=== PATIENT | female | born 1980 | race Caucasian/White ===

== ENCOUNTER 2018-09-23 11:36 | Emergency (ER) | payer SELFPAY ==
[2018-09-23 11:39] VITALS: BP 141/79; PULSE 77; RESP 20; TEMP 36.6; O2SAT 98
--- NOTE | 2018-09-23 11:39 | W.ED.GENAD ---
Discharge Plan Disposition Patient Disposition: HOME Condition: Stable Discharge Details Chief Complaint: Chest/Rib Clinical Impression: Chest pain, musculoskeletal Primary Care Provider: Milena Taylor V ED Provider: Dipak Loja Home Meds and New Rx's Prescriptions: No Action acetaminophen [Mapap Extra Strength] 500 MG tablet 2 tab PO TID PRNRF: 0 ibuprofen 200 MG tablet 200 mg PO PRNRF: 0 Discharge Instructions Additional Instructions: Your pain seems most likely from a muscle strain follow up with your primary care provider in 1-2 weeks if pain continues you can take 1000mg tylenol and 600mg ibuprofen every 6 hours for pain as needed if you have severe worsening pain, difficulty breathing or feel more ill return to the emergency department Stand Alone Forms: Work Release Medical Decision Making 38 yo female who denies chronic medical problems, is a smoker, denies drug use, comes in with a few months of constant left sided chest pain in the mid axillary line wrapping around the inferior left breast and back. Denies pain with exertion, n/v, diaphoresis. She denies being on control or recent travel/surgery, wells low and perc negative so doubt PE. Has clear lungs sounds and no fever so unlikely ptx vs pna but will xray to eval for this. no tearing back pain and normal vascular exam so doubt dissection. She is noted to have tendernress with palpation to the left chest in the mid axillary line over the 4-5ribs without rashes. She does smoke so I suspect chest wall strain from likely smoker's cough. Has no pain with exertion and pain is reproducible on exam and is positional so do not feel acs workup indicated pt remains stable, xray negative on my read. Only has pain now with palpation. Will d/c and advised f/u with pcp and return precautions given Differential Diagnosis muscle strain, ptx pna HPI General Mode of arrival: ambulatory. Date/Time Provider Initiated Documentation: 09/23/18 11:39. Limitations to Documentation: no limitations. Information obtained by: patient. History of Present Illness 38 year old F presents to the emergency department with the chief complaint of left sided chest pain, described as moderate, Quality is described as stabbing and aching, and is localized to the chest and left. Patient reports no radiation. Patient started experiencing this month(s) (2) and it has been constant. No relieving factors improve symptom(s), No exacerbating factors reported . Patient notes cough. Patient did receive the following treatments prior to arrival, NSAID Related Data Home Medications Medication Instructions Recorded Confirmed acetaminophen [Tylenol] 2 tab PO TID PRN 09/13/14 09/23/18 ibuprofen 200 mg PO PRN 11/07/14 11/07/14 Allergies Allergy/AdvReac Type Severity Reaction Status Date / Time morphine AdvReac Intermediate Nausea Unverified 09/23/18 11:42 Review of Systems Review of Systems All systems reviewed & are unremarkable except as noted in HPI and below Constitutional Denies chills, Denies fever(s) and Denies weakness ENT Denies change in voice Cardiovascular Denies dyspnea Respiratory Denies dyspnea Gastrointestinal Denies abdominal pain, Denies nausea and Denies vomiting Genitourinary Denies dysuria Musculoskeletal Denies joint swelling Integumentary/Breasts Denies rash Neurologic Denies weakness [facility] Surgical History Arthroplasty of knee section Diagnostic Laproscopy (11/26/16) Dilation and curettage back surgery Social History Smoking/Tobacco Use Status: Current every day Alcohol Intake: current Alcohol Intake frequency: a few times a month Drug use: Never Do you feel safe in your relationship?: Yes Exam Const General: no acute distress Orientation: alert HENMT Head: normal to inspection Ears: external ears normal General nose exam: external nose normal Mouth: moist mucous membranes Eyes General: appearance normal, both eyes and all related structures Neck Neck: normal visual inspection Chest Chest: normal inspection of the chest and No rash Resp Effort & Inspection: normal respiratory effort and able to speak in complete sentences Cardio Rate: regular rate Skin General skin exam: no rashes or lesions noted Neuro General: alert and oriented x3 Extrem General: normal to inspection Psych Mental Status: mental status grossly normal
--- NOTE | 2018-09-23 11:48 | DI.RAD_ITS ---
SYMPTOMS/DIAGNOSIS: LEFT SIDED CHEST PAIN PA AND LATERAL CHEST: The heart is normal in size. The lungs are clear. The mediastinal structures and pleura appear intact. CONCLUSION: Normal chest.
--- NOTE | 2018-09-23 11:52 | ED.GENADUL_ITS ---
Discharge Plan Disposition Patient Disposition: HOME Condition: Stable Discharge Details Chief Complaint: Chest/Rib Clinical Impression: Chest pain, musculoskeletal Primary Care Provider: Milena Taylor V ED Provider: Dipak Loja Home Meds and New Rx's Prescriptions: No Action acetaminophen [Mapap Extra Strength] 500 MG tablet 2 tab PO TID PRNRF: 0 ibuprofen 200 MG tablet 200 mg PO PRNRF: 0 Discharge Instructions Additional Instructions: Your pain seems most likely from a muscle strain follow up with your primary care provider in 1-2 weeks if pain continues you can take 1000mg tylenol and 600mg ibuprofen every 6 hours for pain as needed if you have severe worsening pain, difficulty breathing or feel more ill return to the emergency department Stand Alone Forms: Work Release Medical Decision Making 38 yo female who denies chronic medical problems, is a smoker, denies drug use, comes in with a few months of constant left sided chest pain in the mid axillary line wrapping around the inferior left breast and back. Denies pain with exertion, n/v, diaphoresis. She denies being on control or recent travel/surgery, wells low and perc negative so doubt PE. Has clear lungs sounds and no fever so unlikely ptx vs pna but will xray to eval for this. no tearing back pain and normal vascular exam so doubt dissection. She is noted to have tendernress with palpation to the left chest in the mid axillary line over the 4-5ribs without rashes. She does smoke so I suspect chest wall strain from likely smoker's cough. Has no pain with exertion and pain is reproducible on exam and is positional so do not feel acs workup indicated pt remains stable, xray negative on my read. Only has pain now with palpation. Will d/c and advised f/u with pcp and return precautions given Differential Diagnosis muscle strain, ptx pna HPI General Mode of arrival: ambulatory . Date/Time Provider Initiated Documentation: 09/23/18 11:39 . Limitations to Documentation: no limitations . Information obtained by: patient . History of Present Illness 38 year old F presents to the emergency department with the chief complaint of left sided chest pain, described as moderate, Quality is described as stabbing and aching, and is localized to the chest and left. Patient reports no radiation. Patient started experiencing this month(s) (2) and it has been constant. No relieving factors improve symptom(s), No exacerbating factors reported . Patient notes cough. Patient did receive the following treatments prior to arrival, NSAID Related Data Home Medications Medication Instructions Recorded Confirmed acetaminophen [Tylenol] 2 tab PO TID PRN 09/13/14 09/23/18 ibuprofen 200 mg PO PRN 11/07/14 11/07/14 Allergies Allergy/AdvReac Type Severity Reaction Status Date / Time morphine AdvReac Intermediate Nausea Unverified 09/23/18 11:42 Review of Systems Review of Systems All systems reviewed & are unremarkable except as noted in HPI and below Constitutional Denies chills, Denies fever(s) and Denies weakness ENT Denies change in voice Cardiovascular Denies dyspnea Respiratory Denies dyspnea Gastrointestinal Denies abdominal pain, Denies nausea and Denies vomiting Genitourinary Denies dysuria Musculoskeletal Denies joint swelling Integumentary/Breasts Denies rash Neurologic Denies weakness [facility] Surgical History Arthroplasty of knee section Diagnostic Laproscopy (11/26/16) Dilation and curettage back surgery Social History Smoking/Tobacco Use Status: Current every day Alcohol Intake: current Alcohol Intake frequency: a few times a month Drug use: Never Do you feel safe in your relationship?: Yes Exam Const General: no acute distress Orientation: alert HENMT Head: normal to inspection Ears: external ears normal General nose exam: external nose normal Mouth: moist mucous membranes Eyes General: appearance normal, both eyes and all related structures Neck Neck: normal visual inspection Chest Chest: normal inspection of the chest and No rash Resp Effort & Inspection: normal respiratory effort and able to speak in complete sentences Cardio Rate: regular rate Skin General skin exam: no rashes or lesions noted Neuro General: alert and oriented x3 Extrem General: normal to inspection Psych Mental Status: mental status grossly normal
[2018-09-23 12:31] VITALS: BP 141/79; PULSE 77; RESP 20; TEMP 36.6; O2SAT 98
== END 2018-09-23 12:31 | disposition home or self-care (01) ==
PROVIDERS: Emergency Provider Emergency Medicine; PCP Family Medicine
DX: R07.89 Other chest pain (principal); F17.210 Nicotine dependence, cigarettes, uncomplicated
CPT/HCPCS: 99283; 71046

== ENCOUNTER 2019-12-22 09:44 | Outpatient (REF) | payer MEDICAID, SELFPAY ==
[2019-12-22 21:33] LABS: Anion Gap 9.7 mmol/L (3-11); BUN 14 mg/dL (7-18); CO2 27.3 mmol/L (21.0-32.0); CREATININE 0.74 mg/dL (0.55-1.02); Calcium 9.5 mg/dL (8.5-10.1); Calculated LDL 128 mg/dL (<100); Chloride 104 mmol/L (98-107); Cholesterol 194 mg/dL (<200); Glucose 96 mg/dL (74-106); HDL Cholesterol 47 mg/dL (40-60); Potassium 4.5 mmol/L (3.5-5.1); Sodium 141 mmol/L (136-145); TSH 0.02 uIU/mL (0.36-3.74); Triglyceride 97 mg/dL (<150)
== END 2019-12-22 10:04 ==
LOC: NCHCN 09:44
PROVIDERS: PCP Family Medicine; Visit Provider Nurse Practitioner Family
DX: E03.9 Hypothyroidism, unspecified (principal); R03.0 Elevated blood-pressure reading, without diagnosis of hypertension; R63.5 Abnormal weight gain
CPT/HCPCS: 80048; 80061; 84443

== ENCOUNTER 2020-03-03 12:31 | Emergency (ER) | payer MEDICAID, SELFPAY ==
[2020-03-03 12:35] VITALS: BP 131/83; PULSE 77; RESP 18; TEMP 36.5; O2SAT 97
--- NOTE | 2020-03-03 12:43 | ED.GENADUL_ITS ---
Discharge Plan Disposition Patient Disposition: HOME Condition: Stable Discharge Details Clinical Impression: Swelling Primary Care Provider: Milena Taylor V ED Provider: Bryanna Donaldson Home Meds and New Rx's Prescriptions: New prednisone 20 mg tablet 60 mg PO DAILY 5 Days Qty: 15 RF: 0 No Action acetaminophen [Mapap Extra Strength] 500 MG tablet 2 tab PO TID PRNRF: 0 ibuprofen 200 MG tablet 200 mg PO PRNRF: 0 levothyroxine 150 mcg tablet 150 mcg PO DAILY RF: 0 Discharge Instructions Instructions: Leg Edema (ED) Additional Instructions: Follow up with primary care provider in 3-5 days. Return to ED sooner if any worsening or concerns. Increase oral fluids. Please take Tylenol or Ibuprofen with food every 4-6 hours as needed for pain and swelling. Take medications as directed for swelling and inflammation. The ultrasound today was negative for DVT. Your lab results are all largely within normal limits. At this time I am not sure what the swelling is caused from but I encourage you to follow-up with your PCP as previously scheduled. Referrals: Milena Taylor MD [Primary Care Provider] - Medical Decision Making 39-year-old female presents to the ER with complaint of swelling noted to her bilateral lower extremities which has been occurring since 1 week. swelling around her right eye began today. She denies any shortness of breath, cough, fe sybil or any other associated symptoms. Denies any chest pain problems urinating nausea vomiting diarrhea. Labs are largely within normal limits, d-dimer slightly elevated at 800. Will do an ultrasound of her bilateral lower extremities to rule out DVT. Prednisone 60 mg p.o. ordered given here in department. Preliminary result received from photo optics technician negative for DVT. Plan is to have patient follow-up with primary care provider she does have an appointment scheduled on the will encourage her to keep that appointment. Differential diagnosis includes DVT, edema, water retention, autoimmune disorder, inflammatory disorder such as lupus or similar. Allergic reaction. HPI General Mode of arrival: ambulatory . Date/Time Provider Initiated Documentation: 03/03/20 12:32 . Limitations to Documentation: no limitations . Information obtained by: patient . HPI Narrative: 39-year-old female presents to the ER with complaint of swelling noted to her bilateral lower extremities which has been occurring since 1 week. swelling around her right eye began today. She denies any shortness of breath, cough, fever or any other associated symptoms. Denies any chest pain problems urinating nausea vomiting diarrhea. Related Data Home Medications Medication Instructions Recorded Confirmed acetaminophen [Tylenol] 2 tab PO TID PRN 09/13/14 09/23/18 ibuprofen 200 mg PO PRN 11/07/14 11/07/14 levothyroxine 150 mcg PO DAILY 03/03/20 03/03/20 prednisone 60 mg PO DAILY 5 Days #15 tab 03/03/20 Previous Rx's Medication Instructions Recorded prednisone 60 mg PO DAILY 5 Days #15 tab 03/03/20 Allergies Allergy/AdvReac Type Severity Reaction Status Date / Time morphine AdvReac Intermediate Nausea Unverified 03/03/20 12:38 General Stated Complaint: Orthopedic MANSOOR: 4 Review of Systems Narrative: Constitutional: Negative for weight loss, alert and oriented, well groomed, normal body habitus, appears comfortable. HEENT: Denies trauma, headaches, blurry vision, nasal discharge, sore throat, trouble swallowing. Chest: Denies chest pain, palpitations, irregular rhythm, hypertension. Respiratory: Denies Shortness of breath, cough, hemoptysis. GI: Denies abdominal pain, nausea, vomiting, diarrhea, constipation. : Denies dysuria, hematuria, flank pain, rectal bleeding. Neuro: Denies dizziness, blurry vision, weakness, syncope, headache or facial numbness. Hematologic: Denies easy bruising, intolerance to heat or cold, hair loss. [facility] Surgical History Arthroplasty of knee 2004 back surgery 2014 [facility]. Spondylothesis. section x2. Diagnostic Laproscopy (11/26/16) At time of D+C for incomplete SAB to r/o ectopic . Dilation and curettage x3 for missed SAB x2 and incomplete SAB x1. Social History Smoking/Tobacco Use Status: Current every day Alcohol Intake: current Alcohol Intake frequency: a few times a month Drug use: Never Do you feel safe at home: Yes Do you feel safe in your relationship?: Yes Exam Narrative Exam Narrative: Constitutional: Alert and oriented x3. Appears stated age. Normal body habitus. Head: Normocephalic, no trauma. Eyes: Pupils PERRLA, Red reflex noted, EOM's intact. Eyelids symmetrical without lesions, discharge. Does have some swelling noted around the right eye lid, no injected conjunctiva or drainage noted. No erythema. ENT: Bilateral TM's WNL, External ear normal to inspection, no mastoid TTP, swelling, or erythema, Nasal turbinates WNL, no nasal discharge. Normal dentition, Posterior pharynx WNL, no exudate. Chest: RRR, Normal S1, S2, distal pulses intact. Resp: Lungs clear to auscultation bilaterally, no wheezes, rales, or rhonchi. Musculoskeletal: Normal gait, 5/5 strength to all four extremities. There is generalized swelling noted to her bilateral lower extremities. Nonpitting edema noted Skin: No suspicious rashes or lesions. Capillary refill less than 2 sec. Neurologic: Cranial nerves II-XII intact. Alert and oriented x 3. DTR's intact. Hematologic/Lymphatic: No ecchymosis, no lymphadenopathy. Course Vital Signs Vital signs: Vital Signs Temperature 36.5 C 03/03/20 12:35 Pulse 77 03/03/20 12:35 Respiratory Rate 18 03/03/20 12:35 Blood Pressure 131/83 03/03/20 12:35 Pulse Oximetry 97 03/03/20 12:35 Temperature 36.5 C 03/03/20 12:35 Temperature Source Skin 03/03/20 12:35 Pulse 77 03/03/20 12:35 Respiratory Rate 18 03/03/20 12:35 Respiratory Effort Non-Labored 03/03/20 12:38 Blood Pressure 131/83 03/03/20 12:35 Blood Pressure Position Sitting 03/03/20 12:35 Pulse Oximetry 97 03/03/20 12:35 Oxygen Delivery Method Room Air 03/03/20 12:35 Oxygen Flow Rate 0 03/03/20 12:35 Pain Level 5 03/03/20 12:35
--- NOTE | 2020-03-03 12:52 | DI.US_ITS ---
EXAM: US EXTREMITY VENOUS BI CLINICAL HISTORY: Swelling legs, r/o DVT. TECHNIQUE: Lower extremity venous ultrasound performed using grayscale, color-flow, and spectral Dop pler analysis. COMPARISON: No exams were available for comparison FINDINGS: The common femoral, femoral and popliteal veins demonstrate normal compressibility, augmentation, and color Doppler. The posterior tibial veins are patent. The saphenous vein appears free of thrombus. No Vera's cyst or hematoma is seen. IMPRESSION: No evidence of DVT. DATA REPOSITORY:
[2020-03-03 13:05] LABS: Abs Immature Grans 0.02 10^3/uL (0.0-0.06); Absolute Basophil Count 0.05 10^3/uL (0.0-0.2); Absolute Lymphocyte Count 1.72 10^3/uL (1.2-3.4); Absolute Monocyte Count 0.56 10^3/uL (0.1-0.8); Absolute Neutrophil Count 3.09 10^3/uL (1.2-6.7); Basophils % 0.9; Eosinophils % 3.5; HCT 35.1 % (36.0-46.0); HGB 11.2 g/dL (11.2-15.7); Immature Grans % 0.4; Lymphocytes % 30.5; MCH 29.9 pg (27.0-33.0); MCHC 31.9 % (32.0-36.0); MCV 93.6 fL (80-95); MPV 9.7 fL (8.0-11.0); Monocytes % 9.9; Neutrophils % 54.8; Nucleated RBC 0 %; RBC 3.75 10^6/uL (3.93-5.22); RDW 13.2 % (11.7-14.6); RDW-SD 45.2 fL; WBC 5.64 10^3/uL (4.4-10.8)
[2020-03-03 13:30] LABS: ALT 36 U/L (14-59); AST 28 U/L (15-37); Albumin 3.2 g/dL (3.4-5.0); Alkaline Phosphatase 71 U/L (46-116); Anion Gap 7.2 mmol/L (3-11); BUN 9 mg/dL (7-18); Bilirubin, Total 0.1 mg/dL (0.2-1.0); CO2 26.8 mmol/L (21.0-32.0); CREATININE 0.83 mg/dL (0.55-1.02); Chloride 107 mmol/L (98-107); Glucose 100 mg/dL (74-106); Magnesium 2.1 mg/dL (1.8-2.4); NT-proBNP 58 pg/mL (<300); Sodium 141 mmol/L (136-145); Total Protein 6.5 g/dL (6.4-8.2)
[2020-03-03 13:31] LABS: Diff Comment Agrees w/ Instrument; Platelet Count 309 10^3/uL (130-400); RBC Morphology Normal
[2020-03-03 13:42] LABS: D-Dimer 800 ng/mlFEU (<500)
[2020-03-03 14:01] LABS: C-Reactive Protein 0.54 mg/dL (0.0-0.3)
[2020-03-03] MEDS: predniSONE 20 MG TAB 60 MG PO (14:10)
[2020-03-03 15:11] VITALS: BP 126/93; PULSE 78; RESP 16; TEMP 36.8; O2SAT 98
== END 2020-03-03 17:11 | disposition home or self-care (01) ==
PROVIDERS: Emergency Provider Registered Nurse Emergency; PCP Family Medicine
DX: R60.0 Localized edema (principal)
CPT/HCPCS: 36415; 80053; 99284; 83735; 83880; 85025; 85379; 86140; 93970; J7512

== ENCOUNTER 2020-11-26 04:41 | Emergency (ER) | payer MEDICAID, SELFPAY ==
--- NOTE | 2020-11-26 04:30 | RT.EKG_ITS ---
APPROVED REPORT Exam: Resting ECG Reason for Exam: SOB Patient Location: E HR:61 bpm ECG Measurements Heart Rate 61 AXIS OR 142 P 70 QRSd 90 QRS 59 QT 428 T 76 QTc 432 Conclusion Sinus rhythm...normal P axis, V-rate 60- 99 Abnrm T, consider ischemia, anterolateral lds...T <-0.20mV, I aVL V2-V6
[2020-11-26 04:42] VITALS: BP 168/99; PULSE 69; RESP 18; TEMP 36.7; O2SAT 100
--- NOTE | 2020-11-26 04:45 | DI.CT_ITS ---
Exam(s) CT CHEST PE ABD PELVIS W EXAM: CT CHEST PE ABD PELVIS W CLINICAL HISTORY: right sided pleuritic chest pain and right abd dariusz. TECHNIQUE: Imaging Protocol: Axial CT angiography was performed with multi-slice acquisition and m ulti-planar and/or 3D reconstructions. CONTRAST MATERIAL: Intravenous: Omnipaque 350 Contrast volume:100 ml Oral: None COMPARISON: No exams were available for comparison FINDINGS: CHEST: PULMONARY ARTERIES: There are no intra-arterial filling defects to suggest the presence of acute pulm onary emboli. LUNGS: There is no evidence of pulmonary infarction. There are no pleural effusions.In the left lowe r lobe there is a subtle suggestion of the 4 millimeter nodule lateral basal segment MEDIASTINUM: There is no hilar nor mediastinal adenopathy. Visualized thyroid unremarkable. CARDIAC: Heart size is upper normal. There is no pericardial effusion. There is no significant shif t of the interventricular septum.Caliber of the thoracic aorta is within normal limits. OSSEOUS: No significant osseous lesions.. ABDOMEN: There is no ascites. There appears to be slight thickening of the esophagus wall at the GE junction level. The esophagus above this level does not appear dilated. LIVER: There are no focal hepatic lesions nor dilatation of intrahepatic ducts. GALLBLADDER/BILIARY: There are multiple gas containing gallstones within the gallbladder lumen. No o bvious gallbladder wall edema nor pericholecystic fluid. The CBD is not dilated. PANCREAS: No evidence of pancreatic mass nor dilatation of the pancreatic duct. SPLEEN: Spleen is not enlarged. There are no intrasplenic lesions. Splenic and portal veins are winters nt. ADRENALS: There are no significant adrenal masses. KIDNEYS:No cysts evident. No calculi nor hydronephrosis. No solid renal masses. ABDOMINAL AORTA: Abdominal aorta is not enlarged. LYMPH NODES: There is no retroperitoneal or para-aortic adenopathy. ABDOMINAL WALL/GI: No evidence of significant anterior abdominal wall hernia. No bowel obstruction. PELVIS: LYMPH NODES: There is no intrapelvic nor inguinal adenopathy. GI: There is a prominent calcified appendicular lith at the junction of the appendix and cecum. Beck sybil, there is no evidence of obvious acute appendicitis.There is sigmoid diverticuli but no evidence of obvious acute diverticulitis. URINARY BLADDER: No calculi nor masses evident REPRODUCTIVE: Multiple uterine fibroids, largest of these being left-sided and measuring 5 x 4 cm. I n the left adnexa there is a cyst in the left ovary which measures 2 by 1.9 cm. Right ovary is not e nlarged. There appear to be nabothian cysts in the lower uterine segment-upper cervix. OSSEOUS: There is fusion hardware in the lower lumbosacral spinal column. No other significant osseo us findings IMPRESSION: 1. No evidence of acute pulmonary emboli nor pulmonary infarction. However, there is a 4 millimeter nodule in left lower lobe, somewhat difficult to evaluate because of motion artifact. Recommend foll ow-up CT scan in 6 months. 2. There are no pleural effusions.No intrathoracic adenopathy 3. There are multiple gas containing gallstones. No obvious gallbladder wall edema. 4. There is a large appendicular lith at the base of the appendix but no evidence of acute appendicit is. 5. Large left-sided uterine fibroid measuring 5 x 4 cm. Also small left ovarian cyst measuring 2 cm. Previous fusion surgery in the lower lumbar spine RADIATION DOSE DELIVERED: 1,839.9mGy.cm Total DLP DATA REPOSITORY: All CT scans at this facility are submitted to the National Radiology Data Registry (NRDR) Dose Index Registry (DIR) with the [employer] ([employer]). RADIATION OPTIMIZATION: All CT scans at this facility use at least one of these dose optimization te chniques: automated exposure control; mA and/or kV adjustment per patient size (includes targeted exa ms where dose is matched to clinical indication); or iterative reconstruction.
--- NOTE | 2020-11-26 04:55 | ED.GENADUL_ITS ---
Discharge Plan Disposition Patient Disposition: HOSPITAL, NON-SPECIFIC Condition: Stable Discharge Details Clinical Impression: Shortness of breath, Cholecystitis Primary Care Provider: Milena Taylor V ED Provider: Dipak Loja Home Meds and New Rx's Prescriptions: No Action acetaminophen [Mapap Extra Strength] 500 MG tablet 2 tab PO TID PRNRF: 0 ibuprofen 200 MG tablet 200 mg PO PRNRF: 0 levothyroxine 150 mcg tablet 150 mcg PO DAILY RF: 0 Medical Decision Making 40 yo female who denies chronic medical problems, quit smoking a year or so ago and denies drug or alcohol use, comes in with chief complaint of right lower chest/right upper abdomen pain that woke her from sleep. She states the pain is such that it prevents her from taking a deep breath in. She denies fevers, chills, vomit. She localizes the pain to the right lower chest in mid axillary line as well as right upper abdomen and is tender in this location on abdomen exam no tenderness elsewhere. Concern for possible cholecystitis vs Pe given pleuritic nature of pain, will obtain ct for pe as well as ct abdomen/pelvis. she has a heart score of 2 and symptoms don't seem typical for acs, will obtain troponin however to evaluate for possible nstemi labs show elevated lfts otherwise no concerning findings on labs, pain improved with fentanyl awaiting ct findings ct shows likely cholecystitis and she does have a positive gould's sign on exam. We do not have beds here, will try to find local hospital for transfer for iv antibiotics and possible cholecystectomy [facility] general surgeon Dr. Tovar who accepts in transfer and patient agrees with plan and remains stable Differential Diagnosis Differential Diagnosis: muscle spasm, Pe, cholecystitis Imaging Data Radiologic Study: Attestation: I personally reviewed and interpreted this imaging study as follows: Imaging: CT Scan Radiologist's impression: IMPRESSION: Abnormal gallbladder suspect for cholecystitis. Correlation with right upper quadrant ultrasound recommended. Minimal intrahepatic biliary ductal prominence Lab Data Lab results reviewed: Yes I reviewed the patient's lab results. ECG Data Attestation: I personally reviewed and interpreted this ECG (s) as follows: Prior ECG tracings: not available for review Interpretation: sinus rhythmrate of 61, no acute ischemic findings HPI General Mode of arrival: ambulatory . Date/Time Provider Initiated Documentation: 11/26/20 04:47 . Limitations to Documentation: no limitations . Information obtained by: patient . History of Present Illness 40 year old F presents to the emergency department with the chief complaint of right sided chest and abdomen pain, described as moderate, and is localized to the chest and abdomen. Patient reports no radiation. Patient started experiencing this hour(s) (3) and it has been constant. No relieving factors improve symptom(s), No exacerbating factors reported . Patient did receive the following treatments prior to arrival, none Related Data Home Medications Medication Instructions Recorded Confirmed acetaminophen [Tylenol] 2 tab PO TID PRN 09/13/14 09/23/18 ibuprofen 200 mg PO PRN 11/07/14 11/07/14 levothyroxine 150 mcg PO DAILY 03/03/20 11/26/20 Allergies Allergy/AdvReac Type Severity Reaction Status Date / Time morphine AdvReac Intermediate Nausea Unverified 03/03/20 12:38 General Stated Complaint: Chest/Rib MANSOOR: 3 Review of Systems All systems reviewed & are unremarkable except as noted in HPI and below Constitutional Constitutional: Denies chills, Denies fever(s) and Denies weakness Respiratory Respiratory: Denies cough Gastrointestinal Gastrointestinal: Denies nausea and Denies vomiting Genitourinary Genitourinary: Denies dysuria Neurologic Neurologic: Denies weakness [facility] Surgical History Arthroplasty of knee 2004 back surgery 2014 [facility]. Spondylothesis. section x2. Diagnostic Laproscopy (11/26/16) At time of D+C for incomplete SAB to r/o ectopic . Dilation and curettage x3 for missed SAB x2 and incomplete SAB x1. Social History Smoking/Tobacco Use Status: Former Tobacco Use Smoking risk assessment performed?: Yes Alcohol Intake: current Alcohol Intake frequency: a few times a month Drug use: Never Do you feel safe at home: Yes Do you feel safe in your relationship?: Yes Exam Const General: other (apperas uncomfortable) Orientation: alert HENMT Head: normal to inspection Ears: external ears normal General nose exam: external nose normal Mouth: moist mucous membranes Eyes General: appearance normal, both eyes and all related structures Neck Neck: normal visual inspection Chest Chest: normal inspection of the chest Resp Effort & Inspection: normal respiratory effort and able to speak in complete sentences Cardio Rate: regular rate GI Palpation: soft and not rigid Skin General skin exam: no rashes or lesions noted Neuro General: patient alert and patient oriented x3 Extrem General: normal to inspection Psych Mental Status: mental status grossly normal Course Vital Signs Vital signs: Vital Signs Temperature 36.7 C 11/26/20 04:42 Pulse 69 11/26/20 04:42 Respiratory Rate 18 11/26/20 04:42 Blood Pressure 168/99 H 11/26/20 04:42 Pulse Oximetry 100 11/26/20 04:42 Temperature 36.7 C 11/26/20 04:42 Pulse 69 11/26/20 04:42 Respiratory Rate 18 11/26/20 04:42 Respiratory Effort Non-Labored 11/26/20 04:47 Respiratory Depth Shallow 11/26/20 04:47 Respiratory Pattern Normal 11/26/20 04:47 Blood Pressure 168/99 H 11/26/20 04:42 Pulse Oximetry 100 11/26/20 04:42 Oxygen Delivery Method Room Air 11/26/20 04:42 Oxygen Flow Rate 0 11/26/20 04:42 Pain Level 8 11/26/20 04:47
[2020-11-26 05:05] LABS: Abs Immature Grans 0.06 10^3/uL (0.0-0.06); Absolute Basophil Count 0.06 10^3/uL (0.0-0.2); Absolute Eosinophil Count 0.24 10^3/uL (0.0-0.7); Absolute Lymphocyte Count 2.64 10^3/uL (1.2-3.4); Absolute Monocyte Count 0.65 10^3/uL (0.1-0.8); Absolute Neutrophil Count 4.77 10^3/uL (1.2-6.7); Basophils % 0.7; Eosinophils % 2.9; HCT 42.6 % (36.0-46.0); HGB 13.5 g/dL (11.2-15.7); Immature Grans % 0.7; Lymphocytes % 31.4; MCH 29.7 pg (27.0-33.0); MCHC 31.7 % (32.0-36.0); MCV 93.6 fL (80-95); MPV 9.5 fL (8.0-11.0); Monocytes % 7.7; Neutrophils % 56.6; Nucleated RBC 0 %; Platelet Count 362 10^3/uL (130-400); RBC 4.55 10^6/uL (3.93-5.22); RDW 14.4 % (11.7-14.6); RDW-SD 49.8 fL; WBC 8.42 10^3/uL (4.4-10.8)
[2020-11-26] MEDS: fentaNYL 100 MCG/2 ML VIAL 75 MCG IVP (05:11)
[2020-11-26 05:15] LABS: Lipase 100 U/L (73-393)
[2020-11-26 05:16] VITALS: RESP 16
[2020-11-26 05:23] LABS: ALT 266 U/L (14-59); AST 83 U/L (15-37); Albumin 3.3 g/dL (3.4-5.0); Alkaline Phosphatase 119 U/L (46-116); Anion Gap 11.7 mmol/L (3-11); BUN 13 mg/dL (7-18); Bilirubin, Direct 0.1 mg/dL (0.0-0.2); Bilirubin, Total 0.2 mg/dL (0.2-1.0); CO2 26.3 mmol/L (21.0-32.0); CREATININE 1.1 mg/dL (0.55-1.02); Calcium 8.7 mg/dL (8.5-10.1); Chloride 107 mmol/L (98-107); Estimated GFR 55.01 (mL/min/1.73m2); Glucose 115 mg/dL (74-106); Sodium 145 mmol/L (136-145); Total Protein 6.9 g/dL (6.4-8.2)
[2020-11-26 05:26] LABS: Troponin I < 0.05 ng/mL (<0.06)
[2020-11-26] MEDS: Normal Saline - Diluent 50 ML VIAL IV (05:31)
[2020-11-26] MEDS: Omnipaque 350 MG/ML 100 ML BTL IJ (05:31)
--- NOTE | 2020-11-26 06:11 | DI.VRAD_ITS ---
PROCEDURE INFORMATION: Exam: CTA Chest With Contrast Exam date and time: 11/26/2020 4:55 AM Age: 40 years old Clinical indication: Abdominal pain; Localized; Right-sided; Prior surgery; Patient HX: Right sided pleuritic chest pain and right abd pain TECHNIQUE: Imaging protocol: Computed tomographic angiography of the chest with contrast. 3D rendering (Not supervised by radiologist): MIP and/or 3D reconstructed images were created by the technologist. COMPARISON: [place] PELVIS TRANSVAG 11/26/2016 6:40 PM FINDINGS: Pulmonary arteries: No pulmonary emboli. Aorta: No aortic aneurysm. No aortic dissection. Lungs: No consolidation. No masses. Pleural spaces: No pneumothorax. No pleural effusion. Heart: Borderline cardiomegaly. No pericardial effusion. Lymph nodes: Unremarkable. No enlarged lymph nodes. Bones/joints: Unremarkable. No acute fracture. Soft tissues: Unremarkable. Mild esophageal thickening IMPRESSION: No pulmonary emboli detected Borderline cardiomegaly Question mild esophagitis PROCEDURE INFORMATION: Exam: CT Abdomen And Pelvis With Contrast Exam date and time: 11/26/2020 4:55 AM Age: 40 years old Clinical indication: Abdominal pain; Localized; Right-sided; Prior surgery; Patient HX: Right sided pleuritic chest pain and right abd pain TECHNIQUE: Imaging protocol: Computed tomography of the abdomen and pelvis with contrast. COMPARISON: [facility] PELVIS TRANSVAG 11/26/2016 6:40 PM FINDINGS: Liver: Minimal intrahepatic biliary ductal prominence No mass. Gallbladder and bile ducts: Gallbladder distension with multiple air containing gallstones. Mild gallbladder wall thickening. No ductal dilation. Pancreas: Normal. No ductal dilation. Spleen: Splenule adjacent to the spleen No splenomegaly. Adrenal glands: Normal. No mass. Kidneys and ureters: Normal. No hydronephrosis. Stomach and bowel: Minimal colonic diverticulosis. No obstruction. No mucosal thickening. Appendix: Appendicoliths at the base of the appendix measuring up to 1 cm No evidence of appendicitis. Intraperitoneal space: Unremarkable. No free air. No significant fluid collection. Vasculature: Unremarkable. No abdominal aortic aneurysm. Lymph nodes: Unremarkable. No enlarged lymph nodes. Urinary bladder: Unremarkable as visualized. Reproductive: Fibroid uterus. Question nabothian cysts in the cervix. Left ovarian cyst measuring 2.3 cm Bones/joints: Prior posterior lumbar fusion at L5-S1 No acute fracture. Soft tissues: Unremarkable. IMPRESSION: Abnormal gallbladder suspect for cholecystitis. Correlation with right upper quadrant ultrasound recommended. Minimal intrahepatic biliary ductal prominence 1 cm appendicoliths at the base of the appendix. No CT evidence for appendicitis Uterine fibroids and small left ovarian cyst. Follow-up pelvic ultrasound may be helpful if not already performed Nonurgent findings as described Dictated and Authenticated by: Mina Loyola MD. Ordering:MONSE Quesada MD
[2020-11-26] MEDS: HYDROmorphone 2 MG/ML VIAL 1 MG IVP ×3 (06:37→08:53)
[2020-11-26] MEDS: PIPERACILLIN/TAZO 4.5 GM in Normal Saline 100 ML IVPB (06:38)
[2020-11-26 08:58] VITALS: BP 105/71; PULSE 60; RESP 16; O2SAT 98
== END 2020-11-26 08:55 | disposition short-term general hospital (02) ==
LOC: ER 06:34
PROVIDERS: Emergency Provider Emergency Medicine; PCP Family Medicine
DX: K81.0 Acute cholecystitis (principal); R06.02 Shortness of breath
CPT/HCPCS: 36415; 71275; 74177; 80053; 83690; 93005; 96365; 96375; 96376; 99285; 82248; 83735; 84484; 85025; 93010; 99284; J2543; J3010; J3490

== ENCOUNTER 2020-12-24 16:38 | Emergency (ER) | payer MEDICAID, SELFPAY ==
[2020-12-24 16:41] VITALS: BP 143/75; PULSE 79; RESP 20; TEMP 36.4; O2SAT 98
--- NOTE | 2020-12-24 16:45 | DI.CT_ITS ---
Exam(s) CT ABDOMEN PELVIS W EXAM: CT ABDOMEN PELVIS W CLINICAL HISTORY: RLQ pain, guarding, appendicolith. TECHNIQUE: Imaging Protocol: Axial computed tomography images with coronal and sagittal reformatted images were created and reviewed CONTRAST MATERIAL: Intravenous: Omnipaque 100cc Oral: None COMPARISON: CT CT CHEST PE ABD PELVIS W from 11/26/2020 FINDINGS: VISUALIZED LUNG BASES: There is an unchanged 4 millimeter nodule in the visualized aspect of the left lower lobe. This appears unchanged from 11/26/2020. There are no additional lung nodules evident i n the visualized lung bases and there are no pleural effusions. ABDOMEN: There is no ascites. LIVER: There are no focal hepatic lesions evident . GALLBLADDER/BILIARY: The gallbladder is now surgically absent. There is an area of hypodensity subja cent to the gallbladder fossa region which measures 1.5 cm AP by 3 cm craniocaudal by 1.2 cm wide. T his does not contain gas bubbles but nevertheless may be infectious process in this patient underwent recent cholecystectomy. No other focal hepatic findings evident. The CBD is not dilated. PANCREAS: No evidence of pancreatic mass nor dilatation of the pancreatic duct. SPLEEN: Spleen is not enlarged. No obvious intrasplenic lesions. Splenic and portal veins are paten t. ADRENALS: There are no significant adrenal masses. KIDNEYS:No cysts evident. No solid renal masses. No calculi nor hydronephrosis.. ABDOMINAL AORTA: Abdominal aorta is not enlarged. LYMPH NODES:There is no retroperitineal nor paraaortic adenopathy. ABDOMINAL WALL: The appearance of the umbilicus-Shae umbilical region is unchanged from the prior pre operative study of 11/26/2020. There is no evidence of new anterior abdominal hernia nor abnormal vee bcutaneous fluid collection. GI: There is no evidence of bowel obstruction nor free intraperitoneal air. PELVIS: GI: Again noted is the previously described large calcification in the appendix, this appendicular li th being at the junction of the appendix and the cecal base and measuring 1.1 x 0.7 cm. However, the re is no evidence of obvious appendicitis.There is sigmoid diverticulosis again noted but no obvious acute diverticulitis. LYMPH NODES: There is no intrapelvic nor inguinal adenopathy. REPRODUCTIVE: Fibroid uterus again noted and there is a dominant large enhancing 5 by 4 cm left-sided fibroid. There also again noted dilated veins in the left adnexal region. Nabothian cysts are agai n noted in the upper cervix. There is a 2 by 1.5 cm cyst in the right ovary which is probably follic ular. Left ovary unremarkable. No free fluid in the pelvis. URINARY BLADDER: No calculi nor obvious masses evident OSSEOUS: Again noted is fusion hardware in the lower lumbar spine with posterior fusion rods and bila teral intrapedicular screws at L5-S1 level. The left S1 screw appears discontinuous-fractured but th is is unchanged. The amount of anterolisthesis of L5 upon S1 is unchanged. IMPRESSION: 1. Compared to the prior CT scan of 11/26/2020 there has been interval cholecystectomy. Presently th ere is a 15 x 30 x 12 millimeter hypodense area subjacent to the gallbladder fossa which may be a sma ll fluid collection. It does not contain gas bubbles but still cannot exclude the possibility of sma ll abscess in this region. The biliary tree is not dilated. 2. There is an 11 x 7 millimeter calcified appendiculalith at the junction of the appendix and cecum again noted. However, there is no evidence of obvious acute appendicitis. 3. Again noted is sigmoid diverticulosis without evidence of obvious diverticulitis. 4. Prominent and highly enhancing 5 x 4 millimeter mass within the left side of the uterus which is p robably a fibroid. There is also a 2 cm x 1.5 cm cyst in the right ovary. There is no free fluid in the pelvis. This study 1st read by [facility]. Final report called by myself to the er physician Friday12/24/2020 7:35 p.m. RADIATION DOSE DELIVERED: 987.64mGy.cm Total DLP DATA REPOSITORY: All CT scans at this facility are submitted to the National Radiology Data Registry (NRDR) Dose Index Registry (DIR) with the [employer] (ACR). RADIATION OPTIMIZATION: All CT scans at this facility use at least one of these dose optimization te chniques: automated exposure control; mA and/or kV adjustment per patient size (includes targeted exa ms where dose is matched to clinical indication); or iterative reconstruction.
[2020-12-24 17:00] LABS: Bilirubin Negative (Negative); Blood Trace-intact (Negative); Clarity Clear (Clear); Glucose Negative (Negative); Ketones Negative (Negative); Leukocyte Esterase Negative (Negative); Nitrite Negative (Negative); Specific Gravity 1.025 (1.005-1.025); Urobilinogen 0.2 EU/dL (Up TO 0.2)
[2020-12-24 17:06] LABS: Bacteria Few HPF (Negative); C & S Indicated? No/Sq. Contamination; Casts Negative LPF (Negative); Crystals Negative HPF (Negative); Epithelial Cells Many HPF (Negative); Mucus Negative (Negative); Other Cells Negative (Negative); RBC Negative HPF (0-2); WBC 20-50 HPF (0-5)
[2020-12-24] MEDS: fentaNYL 100 MCG/2 ML VIAL 50 MCG IVP (17:14)
[2020-12-24 17:15] LABS: Abs Immature Grans 0.03 10^3/uL (0.0-0.06); Absolute Basophil Count 0.07 10^3/uL (0.0-0.2); Absolute Eosinophil Count 0.18 10^3/uL (0.0-0.7); Absolute Lymphocyte Count 2.38 10^3/uL (1.2-3.4); Absolute Monocyte Count 0.55 10^3/uL (0.1-0.8); Absolute Neutrophil Count 4.91 10^3/uL (1.2-6.7); Basophils % 0.9; Eosinophils % 2.2; HCT 44.7 % (36.0-46.0); HGB 14.3 g/dL (11.2-15.7); Immature Grans % 0.4; Lymphocytes % 29.3; MCH 30.1 pg (27.0-33.0); MCV 94.1 fL (80-95); MPV 9.1 fL (8.0-11.0); Monocytes % 6.8; Neutrophils % 60.4; Nucleated RBC 0 %; Platelet Count 426 10^3/uL (130-400); RBC 4.75 10^6/uL (3.93-5.22); RDW 13.4 % (11.7-14.6); RDW-SD 46.8 fL; WBC 8.12 10^3/uL (4.4-10.8)
[2020-12-24] MEDS: ACETAMINOPHEN 1,000 MG/100 ML BTL 400 MG IVPB (17:15)
[2020-12-24 17:33] LABS: ALT 142 U/L (14-59); AST 51 U/L (15-37); Albumin 3.8 g/dL (3.4-5.0); Alkaline Phosphatase 135 U/L (46-116); Anion Gap 7.6 mmol/L (3-11); BUN 9 mg/dL (7-18); Bilirubin, Total 0.2 mg/dL (0.2-1.0); CO2 30.4 mmol/L (21.0-32.0); CREATININE 0.9 mg/dL (0.55-1.02); Calcium 9.3 mg/dL (8.5-10.1); Chloride 105 mmol/L (98-107); Glucose 90 mg/dL (74-106); Lipase 103 U/L (73-393); Potassium 4.2 mmol/L (3.5-5.1); Sodium 143 mmol/L (136-145); Total Protein 7.7 g/dL (6.4-8.2)
[2020-12-24] MEDS: Normal Saline - Diluent 50 ML VIAL IV (17:51)
[2020-12-24] MEDS: Omnipaque 350 MG/ML 100 ML BTL IJ (17:53)
[2020-12-24] MEDS: Normal Saline Flush 10 ML SYR IVP ×2 (17:54→18:51)
--- NOTE | 2020-12-24 17:57 | W.ED.GENAD ---
Discharge Plan Disposition Patient Disposition: HOME Condition: Stable Discharge Details Clinical Impression: Abdominal pain Primary Care Provider: Milena Taylor V ED Provider: Ela Jurado Home Meds and New Rx's Prescriptions: New doxycycline hyclate 100 mg capsule 100 mg PO BID Qty: 28 RF: 0 Continued acetaminophen [Mapap Extra Strength] 500 MG tablet 2 tab PO TID PRNRF: 0 ibuprofen 200 MG tablet 200 mg PO PRN PRNRF: 0 levothyroxine 150 mcg tablet 150 mcg PO DAILY RF: 0 Discharge Instructions Instructions: Abdominal Pain (ED) Additional Instructions: I am treating you for possible pelvic inflammatory disease, please follow-up with the OB take the antibiotics as prescribed Take ibuprofen 600 mg every 8 hours with food Take Tylenol 650 mg as needed for discomfort Please return immediately should you develop fever, chills, worsening pain Been recommended by reevaluated to your PCP likely tomorrow if i am scheduling you for outpatient ultrasound, they will call you tomorrow to schedule follow-up Medical Decision Making Patient with a CT scan from virtual radiologist that showed appendicolith right lower quadrant abdominal pain, consult with surgery at approximately 1900 he does not feel like this is acute appendicitis Initial plan was to discharge patient home, however patient significant discomfort Virtual radiology initially read the CT scan and an overread by our radiologist, Dr. Garcia displays a possible fluid collection adjacent to the cholecystectomy site, this was reviewed with both patient surgeon at [facility] and our surgeon, Dr. Owens and Dr. Owens with concern for possible need for ERCP so initial consultation was recommended to gastroenterology at [facility], I spoke with Dr. Johnson who is a GI fellow at [facility] and she does not feel as though patient has a bile leak based on her labs and CT scan findings, she recommends MRCP or HIDA scan at discretion of the surgeon however she does not feel gastral enterology needs to be involved at this time I also discussed the case with on-call surgeon, Dr. Ibrahim for patient's surgeon at [facility] who did not feel that patient warrants GI evaluation necessarily at this time, however he states that an observation admission regarding the appendicolith and the right lower quadrant pain is reasonable, he did offer it to take the patient in transfer, however this will likely be an EMTALA violation I did consult with Dr. Owens additionally as the patient has intractable pain at approximately 2100, I asked that she please admit the patient to the hospital or evaluate the patient in the emergency room At this time she asked to have a few minutes to review and states she will return phone call, at this time, 2121 and pending return phone call from on-call surgery Dr. Owens return phone call and after long discussion is willing to consult on this patient, to spend an extended period of time evaluating the patient and feels as though patient does not have acute appendicitis, nor does she feel that she needs admission for surgical consultation and observation at this time I had a long discussion with patient and offered admission for pain control and reevaluation in the morning, patient is alert, oriented, of decisional capacity and declines admission at this time The finding on CT scan for possible abscess after numerous complications does not seem to be an unusual presentation in the postoperative. And patient will be arranged close outpatient follow-up, She does have some mild cervical motion tenderness that is exquisitely tender in the right lower quadrant, I will treat her empirically for pelvic inflammatory disease with close outpatient follow-up as she is afebrile and otherwise not sick in appearance She was given 1 g of ceftriaxone as initially had ordered it IV and it was already premixed so she had a supratherapeutic dose intramuscularly from the 500 mg which is typical for empiric treatment Patient was placed on doxycycline, 14 days She given referral to [facility] and will need outpatient follow-up with primary care physician She discharged home in stable condition with stable vitals She is given low threshold to return should she have new or worsening complaints in fact 24-hour recheck is recommended I have also schedule her for outpatient ultrasound of both pelvis and gallbladder Patient is acting well and interactive at time of reevaluation, she is ambulatory with steady gait And her vitals remained stable throughout this encounter I spent approximately 2-1/2 hours arranging a consultation and discussing with patient plan throughout the stay HPI General Mode of arrival: ambulatory. Date/Time Provider Initiated Documentation: 12/24/20 16:41. Limitations to Documentation: no limitations. Information obtained by: patient. HPI Narrative: 40-year-old female presents with right lower quadrant pain intermittent initially 2 days prior to arrival now persistent pain worsened with walking. Denies fever or chills. Denies any chest pain or shortness of breath. Denies any urinary symptoms. Denies any chance of . Sexually active and monogamous with a partner for the past 6 months. Status post cholecystectomy on 19 November which was uneventful and pain was completely alleviated. Denies any right upper quadrant pain. Denies any fever or chills. States she is been intermittently nauseous without vomiting. She denies any abnormal vaginal discharge. She denies any blood in stool. She denies prior history of similar pain in the past. She describes pain as sharp and constant. She states it is exacerbated with walking. She denies any dysuria or frequency. Related Data Home Medications Medication Instructions Recorded Confirmed acetaminophen [Mapap Extra 2 tab PO TID PRN 09/13/14 12/24/20 Strength] ibuprofen 200 mg PO PRN PRN 11/07/14 11/07/14 levothyroxine 150 mcg PO DAILY 03/03/20 12/24/20 doxycycline hyclate 100 mg PO BID #28 cap 12/24/20 Previous Rx's Medication Instructions Recorded doxycycline hyclate 100 mg PO BID #28 cap 12/24/20 Allergies Allergy/AdvReac Type Severity Reaction Status Date / Time morphine AdvReac Intermediate Nausea Unverified 12/24/20 16:46 General Stated Complaint: Abd Prob MANSOOR: 3 Review of Systems All systems reviewed & are unremarkable except as noted in HPI and below PFSH Surgical History Arthroplasty of knee 2004 back surgery 2014 [facility]. Spondylothesis. section x2. Diagnostic Laproscopy (11/26/16) At time of D+C for incomplete SAB to r/o ectopic . Dilation and curettage x3 for missed SAB x2 and incomplete SAB x1. Social History Smoking/Tobacco Use Status: Former Tobacco Use Smoking risk assessment performed?: Yes Alcohol Intake: current Alcohol Intake frequency: a few times a month Drug use: Never Do you feel safe at home: Yes Do you feel safe in your relationship?: Yes Exam Const General: cooperative and acute distress HENMT Other: Moist mucous membranes Eyes Pupils: PERRL Resp Effort & Inspection: normal respiratory effort Cardio Rate: regular rate Rhythm: regular rhythm GI Other: Guarding, right lower quadrant, tenderness to palpation No CVA tenderness, no abdominal bruit or pulsatile Other: Mild cervical motion tenderness with right adnexal tenderness, no discoloration, no significant vaginal discharge Skin General skin exam: no rashes or lesions noted Neuro General: patient alert and patient oriented x3 Extrem Other: Distal pulses intact Course Vital Signs Vital signs: Vital Signs Temperature 36.4 C L 12/24/20 16:41 Pulse 79 12/24/20 16:41 Respiratory Rate 20 12/24/20 16:41 Blood Pressure 143/75 H 12/24/20 16:41 Pulse Oximetry 98 12/24/20 16:41 Temperature 36.4 C L 12/24/20 16:41 Temperature Source Temporal Artery Scan 12/24/20 16:41 Pulse 79 12/24/20 16:41 Respiratory Rate 20 12/24/20 16:41 Respiratory Effort Non-Labored 12/24/20 16:47 Blood Pressure 143/75 H 12/24/20 16:41 Blood Pressure Position Sitting 12/24/20 16:41 Pulse Oximetry 98 12/24/20 16:41 Oxygen Delivery Method Room Air 12/24/20 16:41 Oxygen Flow Rate 0 12/24/20 16:41 Pain Level 7 12/24/20 17:25 Lab/Test Results Lab/Test Results: Laboratory Tests Range/Units 12/24/20 12/24/20 12/24/20 16:40 17:07 17:07 WBC (4.4-10.8) 10^3/uL 8.12 RBC (3.93-5.22) 10^6/uL 4.75 Hgb (11.2-15.7) g/dL 14.3 Hct (36.0-46.0) % 44.7 MCV (80-95) fL 94.1 MCH (27.0-33.0) pg 30.1 MCHC (32.0-36.0) % 32.0 RDW (11.7-14.6) % 13.4 Plt Count (130-400) 10^3/uL 426 H MPV (8.0-11.0) fL 9.1 Immature Gran % 0.4 Neutrophils % 60.4 Lymphocytes % 29.3 Monocytes % 6.8 Eosinophils % 2.2 Basophils % 0.9 Nucleated RBC % % 0 Absolute Neutrophils (1.2-6.7) 10^3/uL 4.91 Absolute Lymphocytes (1.2-3.4) 10^3/uL 2.38 Absolute Monocytes (0.1-0.8) 10^3/uL 0.55 Absolute Eosinophils (0.0-0.7) 10^3/uL 0.18 Absolute Basophils (0.0-0.2) 10^3/uL 0.07 Sodium (136-145) mmol/L 143 Potassium (3.5-5.1) mmol/L 4.2 Chloride (98-107) mmol/L 105 Carbon Dioxide (21.0-32.0) mmol/L 30.4 Anion Gap (3-11) mmol/L 7.6 BUN (7-18) mg/dL 9 Creatinine (0.55-1.02) mg/dL 0.9 Estimated GFR/1.73 m2 (mL/min/1.73m2) >= 60.00 Glucose (74-106) mg/dL 90 Calcium (8.5-10.1) mg/dL 9.3 Total Bilirubin (0.2-1.0) mg/dL 0.2 AST (15-37) U/L 51 H ALT (14-59) U/L 142 H Alkaline Phosphatase (46-116) U/L 135 H Total Protein (6.4-8.2) g/dL 7.7 Albumin (3.4-5.0) g/dL 3.8 Lipase (73-393) U/L 103 Urine Color (Yellow) Yellow Urine Clarity (Clear) Clear Urine pH (5-8) 6.0 Ur Specific [place] (1.005-1.025) 1.025 Urine Protein (Negative) mg/dL Negative Urine Ketones (Negative) mg/dL Negative Urine Blood (Negative) Trace-intact H Urine Nitrite (Negative) Negative Urine Bilirubin (Negative) Negative Urine Urobilinogen (Up TO 0.2) EU/dL 0.2 Ur Leukocyte Esterase (Negative) Negative Urine RBC (0-2) HPF Negative Urine WBC (0-5) HPF 20-50 H Ur Epithelial Cells (Negative) HPF Many Urine Crystals (Negative) HPF Negative Urine Bacteria (Negative) HPF Few Urine Casts (Negative) LPF Negative Urine Mucus (Negative) Negative Urine Other (Negative) Negative Ur Culture Indicated? No/Sq. Contamination Urine Glucose (Negative) mg/dL Negative POC- Test(urine) Negative
--- NOTE | 2020-12-24 18:17 | DI.VRAD_ITS ---
PROCEDURE INFORMATION: Exam: CT Abdomen And Pelvis With Contrast Exam date and time: 12/24/2020 4:58 PM Age: 40 years old Clinical indication: Other: Rlq pain, guarding, appendicolith; Prior surgery; Surgery date: 1-6 months TECHNIQUE: Imaging protocol: Computed tomography of the abdomen and pelvis with contrast. Contrast material: OMNIPAQUE 350; Contrast volume: 100 ml; Contrast route: INTRAVENOUS (IV); COMPARISON: CT CHEST PE ABD PELVIS W 11/26/2020 5:18 AM FINDINGS: Lungs: The visualized portions of the lung bases are normal. Liver: Normal. No mass. Gallbladder and bile ducts: There has been a cholecystectomy. Pancreas: Normal. No ductal dilation. Spleen: Normal. No splenomegaly. Adrenal glands: Normal. No mass. Kidneys and ureters: Normal. No hydronephrosis. Stomach and bowel: Mild diverticulosis is present in the distal colon. Appendix: There is a large appendicolith at the base of the appendix. However the appendix is not distended or thickened. Intraperitoneal space: Unremarkable. No free air. No significant fluid collection. Vasculature: Unremarkable. No abdominal aortic aneurysm. Lymph nodes: Unremarkable. No enlarged lymph nodes. Urinary bladder: Unremarkable as visualized. Reproductive: Stable solid mass within the left body of the uterus measuring 4.9 x 4 x 4.7 cm most likely compatible with a fibroid. Slightly smaller left renal cyst within the left adnexa/ovary. Bones/joints: Unremarkable. No acute fracture. Soft tissues: Unremarkable. IMPRESSION: 1. Stable large appendicolith at the base of the appendix. Otherwise the appendix is normal. No evidence of acute abdominal or pelvic process. 2. Stable fibroid uterus. 3. Mild sigmoid diverticulosis. 4. Slightly smaller left renal cyst within the left adnexa/ovary. Dictated and Authenticated by: iGgi Alfonso MD. Ordering:REGGIE Mahmood MD
[2020-12-24] MEDS: HYDROmorphone 2 MG/ML VIAL 0.5 MG IVP ×3 (18:24→22:58)
[2020-12-24] MEDS: Ketorolac 15 MG/ML VIAL IVP (18:51)
[2020-12-24 18:57] VITALS: BP 132/86; PULSE 84; RESP 16; TEMP 36.2; O2SAT 98
--- NOTE | 2020-12-24 18:57 | NUR.NOTE ---
assumed care of patient. bedside report completed. Nursing Note:
[2020-12-24 20:12] VITALS: BP 107/73; PULSE 69; RESP 16; O2SAT 98
--- NOTE | 2020-12-24 20:16 | NUR.NOTE ---
patient re-medicated per provider order. Nursing Note:
--- NOTE | 2020-12-24 21:16 | NUR.NOTE ---
patient rounded on and resting comfortably. awaiting consult to arrive. Nursing Note:
--- NOTE | 2020-12-24 22:11 | NUR.NOTE ---
surgeon at bedside. Nursing Note:
[2020-12-24 22:58] VITALS: BP 113/63; PULSE 69; RESP 16; O2SAT 98
--- NOTE | 2020-12-24 23:02 | W.SURGCON ---
Date of service: 12/24/20 Time of Service: 23:02 Assessment and Plan Assessment and plan (1) Abdominal pain: Status: Acute Assessment and plan: This is a 40yo female who presented with abdominal pain. The etiology is unclear. She recently underwent a cholecystectomy on 11/26/20 at [facility] and was found to have a small collection in the liver bed on CT, and has perisistent transaminitis with elevated alk phos. She also has had 3 unusual episodes of vaginal bleeding, the last on 12/22, with a history of spontaneous abortions, requiring D+C. The CT scan also revealed a persistent appendicolith without appendicitis, that was also seen on her last CT scan on 11/26/20. Based on her CT findings, clinical findings, and exam, I do not believe that her pain reflects acute appendicitis. Recommendations: --IV fluid resuscitation --check beta-hcG to see if this may reflect recent spontaneous/missed --pelvic ultrasound --liver ultrasound vs. MRCP --gynecologic follow-up --pain control --return to ED for persistent, worsening symptoms History of Present Illness History of Present Illness Chief Complaint: abdominal pain Narrative: This is a 40-year-old female who presents with abdominal pain for the last 5-6 days, worsening over the last two days becoming more focal in the right upper, and right lower quadrant. She recently underwent an apparently uncomplicated laparoscopic cholecystectomy at [facility] on 11/26/20. She was discharged the next day. She states that she started the first menstrual period she had had in a year the following day on 11/28, and it was very heavy, with clots. She had another period of bleeding from 12/19-. During intercourse, she passed an unexpected large gush on 12/22. She states since then she's had worse cramping and pain in the right lower and upper quadrants. She has a history of 3 known spontaneous abortions, each requiring a D&C in the past. The last one was in 10/2016. She states that she has always had disordered menstrual bleeding. Over the last few days, she denies fever/chills, vomiting, dysuria, diarrhea, and constipation. She has had minimal nausea, some decrease in appetite, and malaise. She presented to the ED because of persistent pain. On evaluation in the ED, she was found to be non-toxic, afebrile, and hemodynamically stable. Consults Consult date: 12/24/20 Requesting physician: Ela Jurado Review of Systems Constitutional Constitutional: Denies chills, Denies fever(s), Reports malaise and Reports poor appetite ENT Ears, Nose, Mouth, and Throat: Denies dysphagia and Denies odynophagia Cardiovascular Cardiovascular: Denies chest pain and Denies dyspnea Respiratory Respiratory: Denies cough and Denies dyspnea Gastrointestinal Gastrointestinal: Reports abdominal pain, Reports belching, Denies hematochezia, Denies tenesmus, Denies change in stool character, Denies coffee ground emesis, Denies dysphagia, Denies fecal incontinence, Denies loose stools, Reports nausea, Denies odynophagia and Denies vomiting Genitourinary Genitourinary: Denies dysuria, Reports pelvic pain, Reports urinary incontinence, Reports urinary hesitancy and Reports vaginal discharge Comments: pain radiates to groin Musculoskeletal Musculoskeletal: Denies arthralgias and Denies numbness Integumentary/Breasts Skin/Breast: Denies new lesions and Denies rash Neurologic Neurologic: Denies numbness [facility] Surgical History Arthroplasty of knee 2005 back surgery 2015 [facility]. Spondylothesis. section x2. Diagnostic Laproscopy (11/26/16) At time of D+C for incomplete SAB to r/o ectopic . Dilation and curettage x3 for missed SAB x2 and incomplete SAB x1. Social History Smoking/Tobacco Use Status: Former Tobacco Use Smoking risk assessment performed?: Yes Alcohol Intake: current Alcohol Intake frequency: a few times a month Drug use: Never Do you feel safe at home: Yes Do you feel safe in your relationship?: Yes Exam Narrative Exam Narrative: The patient was non-toxic appearing, and was very fidgety Const General: cooperative, healthy appearing, uncomfortable and well developed Nutritional Appearance: average body habitus Orientation: alert, awake and oriented x3 HENMT Head: not normocephalic, signs of trauma, no raccoon eyes and No periorbital ecchymosis Eyes Sclera: sclerae normal Resp Effort & Inspection: normal respiratory effort, able to speak in complete sentences, no grunting, not labored and no nasal flaring Auscultation: clear to auscultation bilaterally Cardio Rate: regular rate Rhythm: regular rhythm Heart Sounds: S1 normal and S2 normal GI Inspection: non-distended, incision (well-healing post-surgical incisions) and obesity Palpation: soft, not firm, not rigid and tender (liver tender to palpation) in the epigastrum, in the RLQ, in the LUQ, in the RUQ and suprapubicly; obturator sign negative, psoas sign negative and Rovsing's sign negative Back/Spine/Pelvis Back: CVA tenderness (right-sided) Skin General skin exam: no rashes or lesions noted Wounds: wounds noted (healing abdominal wounds) Neuro General: patient alert, patient awake and patient oriented x3 Results Last Vital Signs Temp 97.2 F L 12/24/20 18:57 Pulse 69 12/24/20 22:58 Resp 16 12/24/20 22:58 BP 113/63 12/24/20 22:58 Pulse Ox 98 12/24/20 22:58 Labs Result diagrams: 12/24/20 17:07 12/24/20 17:07 Labs: Laboratory Results - last 24 hr 12/24/20 12/24/20 12/24/20 16:40 17:07 17:07 WBC 8.12 RBC 4.75 Hgb 14.3 Hct 44.7 MCV 94.1 MCH 30.1 MCHC 32.0 RDW 13.4 Plt Count 426 H MPV 9.1 Immature Gran % 0.4 Neutrophils % 60.4 Lymphocytes % 29.3 Monocytes % 6.8 Eosinophils % 2.2 Basophils % 0.9 Nucleated RBC % 0 Absolute Neutrophils 4.91 Absolute Lymphocytes 2.38 Absolute Monocytes 0.55 Absolute Eosinophils 0.18 Absolute Basophils 0.07 Sodium 143 Potassium 4.2 Chloride 105 Carbon Dioxide 30.4 Anion Gap 7.6 BUN 9 Creatinine 0.9 Estimated GFR/1.73 m2 >= 60.00 Glucose 90 Calcium 9.3 Total Bilirubin 0.2 AST 51 H ALT 142 H Alkaline Phosphatase 135 H Total Protein 7.7 Albumin 3.8 Lipase 103 Urine Color Yellow Urine Clarity Clear Urine pH 6.0 Ur Specific [place] 1.025 Urine Protein Negative Urine Ketones Negative Urine Blood Trace-intact H Urine Nitrite Negative Urine Bilirubin Negative Urine Urobilinogen 0.2 Ur Leukocyte Esterase Negative Urine RBC Negative Urine WBC 20-50 H Ur Epithelial Cells Many Urine Crystals Negative Urine Bacteria Few Urine Casts Negative Urine Mucus Negative Urine Other Negative Ur Culture Indicated? No/Sq. Contamination Urine Glucose Negative COVID-19 Source SARS-CoV-2 (PCR) 12/24/20 22:38 WBC RBC Hgb Hct MCV MCH MCHC RDW Plt Count MPV Immature Gran % Neutrophils % Lymphocytes % Monocytes % Eosinophils % Basophils % Nucleated RBC % Absolute Neutrophils Absolute Lymphocytes Absolute Monocytes Absolute Eosinophils Absolute Basophils Sodium Potassium Chloride Carbon Dioxide Anion Gap BUN Creatinine Estimated GFR/1.73 m2 Glucose Calcium Total Bilirubin AST ALT Alkaline Phosphatase Total Protein Albumin Lipase Urine Color Urine Clarity Urine pH Ur Specific [place] Urine Protein Urine Ketones Urine Blood Urine Nitrite Urine Bilirubin Urine Urobilinogen Ur Leukocyte Esterase Urine RBC Urine WBC Ur Epithelial Cells Urine Crystals Urine Bacteria Urine Casts Urine Mucus Urine Other Ur Culture Indicated? Urine Glucose COVID-19 Source Cancelled SARS-CoV-2 (PCR) Cancelled Imaging Abdomen CT scan report/results: report reviewed and image reviewed CT scan - pelvis: report reviewed Imaging Studies: CT ABD/PEL (12/24/20): IMPRESSION: 1. Compared to the prior CT scan of 11/26/2020 there has been interval cholecystectomy. Presently there is a 15 x 30 x 12 millimeter hypodense area subjacent to the gallbladder fossa which may be a small fluid collection. It does not contain gas bubbles but still cannot exclude the possibility of small abscess in this region. The biliary tree is not dilated. 2. There is an 11 x 7 millimeter calcified appendiculalith at the junction of the appendix and cecum again noted. However, there is no evidence of obvious acute appendicitis. 3. Again noted is sigmoid diverticulosis without evidence of obvious diverticulitis. 4. Prominent and highly enhancing 5 x 4 millimeter mass within the left side of the uterus which is probably a fibroid. There is also a 2 cm x 1.5 cm cyst in the right ovary. There is no free fluid in the pelvis.
--- NOTE | 2020-12-24 23:04 | NUR.NOTE ---
Nursing Note: Referral faxed to [facility] care [facility] for follow up regarding ED visit within 24-48 hours as requested by Ela Light.
[2020-12-24] MEDS: Doxycycline Hyclate 100 MG CAP PO (23:19)
[2020-12-24] MEDS: cefTRIAXone 1 GM VIAL (23:20)
--- NOTE | 2020-12-26 09:24 | PDOC.ERCMPRO ---
- If Service Date Differs Date of service: 12/26/20 Time of Service: 09:24 Care Management Progress Note Roxy is seen in the ED on 12/24/20 for abdominal pain. At the request of ED provider, JAYESH contacts the [facility] to ensure Roxy has a scheduled follow up appointment. JAYESH is advised that Roxy has an appointment scheduled for Friday, January 01, 2021 at 2:00 pm.
[2020-12-26 15:17] LABS: Chlamydia Result Negative (Negative); GC Result Negative (Negative)
== END 2020-12-24 23:25 | disposition home or self-care (01) ==
PROVIDERS: Emergency Provider Physician Assistant; PCP Family Medicine
DX: E10.311 Type 1 diabetes mellitus with unspecified diabetic retinopathy with macular edema (principal); Z90.49 Acquired absence of other specified parts of digestive tract; K38.1 Appendicular concretions
CPT/HCPCS: 80053; 81025; 83690; 87491; 87591; 87635; 96365; 96375; 96376; 99285; 74177; 81003; 81015; 85025; 87480; 87510; 87660; 99284; J0131; J0696; J1885; J3010; J3490

== ENCOUNTER 2021-01-01 15:26 | Outpatient (REF) | payer MEDICAID, SELFPAY ==
[2021-01-01 21:23] LABS: TSH (W/Ref FT4) 2.29 uIU/mL (0.36-3.74)
== END 2021-01-01 15:27 | disposition home or self-care (01) ==
LOC: NCHCN 15:26
PROVIDERS: PCP Family Medicine; Visit Provider Nurse Practitioner Family
DX: E03.9 Hypothyroidism, unspecified (principal)
CPT/HCPCS: 84443

== ENCOUNTER 2021-01-03 06:42 | Emergency (ER) | payer MEDICAID, SELFPAY ==
--- NOTE | 2021-01-03 06:45 | DI.CT_ITS ---
Exam(s) CT ABDOMEN PELVIS W EXAM: CT ABDOMEN PELVIS W CLINICAL HISTORY: right lower back and abdomen pain. TECHNIQUE: Imaging Protocol: Axial computed tomography images with coronal and sagittal reformatted images were created and reviewed CONTRAST MATERIAL: Intravenous: Omnipaque 100cc Oral: None COMPARISON: CT CT ABDOMEN PELVIS W from 12/24/2020 FINDINGS: VISUALIZED LUNG BASES: No nodules nor pleural effusions evident. ABDOMEN: There is no ascites. LIVER: There are no focal hepatic lesions evident. Gallbladder surgically absent. The previously de scribed area of hypodensity subjacent the gallbladder fossa measuring 30 x 15 x 12 millimeters is aga in noted, unchanged. Does not contain gas bubbles and there are no other collections. GALLBLADDER/BILIARY: Surgically absent CBD is not dilated. PANCREAS: No evidence of pancreatic mass nor dilatation of the pancreatic duct. SPLEEN: Spleen is not enlarged. No obvious intrasplenic lesions. Splenic and portal veins are paten t. ADRENALS: There are no significant adrenal masses. KIDNEYS:No cysts evident. No solid renal masses. No calculi nor hydronephrosis.. ABDOMINAL AORTA: Abdominal aorta is not enlarged. LYMPH NODES:There is no retroperitineal nor paraaortic adenopathy. ABDOMINAL WALL: No evidence of significant anterior abdominal wall hernia. GI: There is noted the previously described calcification at the junction of the cecal base and appen sivakumar, measuring 11 x 7 millimeters. However, no obvious appendicitis seen. There is no obvious small bowel obstruction. PELVIS: GI: No evidence of appendicitis.Again noted is sigmoid diverticulosis but without obvious acute diver ticulitis. LYMPH NODES: There is no intrapelvic nor inguinal adenopathy. REPRODUCTIVE: Again noted is an abnormal appearing uterus with a large enhancing mass in the left shavon e either side measuring approximately 5.3 by 4 cm, probably a large fibroid. This does not enhance c ompletely uniformly. The left ovary visualized a separate and exhibits normal size. Right ovary exh ibits a E an enhancing cyst, previously present but now exhibiting enhancement, probably evolution. There is no free fluid in the pelvis. URINARY BLADDER: No calculi nor obvious masses evident OSSEOUS: Again noted is fusion hardware in the lower lumbar spine. The left S1 screw appears discont inuous-fractured but this is unchanged. IMPRESSION: 1. Large appendicular lith again noted no obvious acute appendicitis. 2. Also in the right lower quadrant is difference and enhancement pattern of the previously described 20 x 15 millimeter cyst in the right ovary, probably undergoing involution at this time. 3. Again noted is a large by 0.3 x 4 cm enhancing mass in left side of the uterus which is probably a fibroid. 4. Again noted is what appears to be an unchanged 15 x 30 x 12 millimeter fluid collection subjacent to the gallbladder fossa. This does not contain gas bubbles but nevertheless cannot exclude the poss ibly of small abscess in this region. The biliary tree is not dilated. RADIATION DOSE DELIVERED: 959.82mGy.cm Total DLP DATA REPOSITORY: All CT scans at this facility are submitted to the National Radiology Data Registry (NRDR) Dose Index Registry (DIR) with the [employer] (ACR). RADIATION OPTIMIZATION: All CT scans at this facility use at least one of these dose optimization te chniques: automated exposure control; mA and/or kV adjustment per patient size (includes targeted exa ms where dose is matched to clinical indication); or iterative reconstruction.
[2021-01-03 06:47] VITALS: BP 141/109; PULSE 98; RESP 18; TEMP 36.2; O2SAT 99
--- NOTE | 2021-01-03 07:01 | ED.GENADUL_ITS ---
Discharge Plan Disposition Patient Disposition: HOME Condition: Stable Discharge Details Clinical Impression: Abdominal pain, Lumbago Primary Care Provider: Milena Taylor V ED Provider: Nito Cantu Home Meds and New Rx's Prescriptions: New diazepam [Valium] 5 mg tablet 5 mg PO BID PRN (Reason: muscle spasm) Qty: 7 RF: 0 Continued acetaminophen [Mapap Extra Strength] 500 MG tablet 2 tab PO TID PRNRF: 0 ibuprofen 200 MG tablet 200 mg PO PRN PRNRF: 0 levothyroxine 150 mcg tablet 150 mcg PO DAILY RF: 0 doxycycline hyclate 100 mg capsule 100 mg PO BID Qty: 28 RF: 0 Discharge Instructions Instructions: Low Back Strain (ED), Abdominal Pain (ED) Additional Instructions: Continue your regular medications. Continue Tylenol and ibuprofen as needed for pain. May use the provided Valium as needed for further muscle pain or spasm. No alcohol or driving with this medication. Small, frequent sips of fluid so that you maintain good hydration. Follow-up with regular doctor if not improved in 7 days time. Return to the emergency department for any acute concerns. Medical Decision Making <iDpak Loja MD - Last Filed: 01/03/21 07:08> 40 yo femalel who had a cholecystectomy at [facility] in November after being diagnosed here with cholecystitis (no beds available here so was transferred) comes in with right lower abdomen and lower back pain. She was seen after her surgery here for right sided pain and had CT showing nonspecific fluid collection at site where gallbladder was and also appendicolith. Her surgeon at [facility] as well as Dr. Owens here were consulted, did not feel the fluid collection was the cause of her pain and did not feel she was having appendicitis so she was discharged. The provider at that time did start treatment for PID though patient denies on my history with her having any vaginal discharge and her gc/chlamydia tests ended up being negative. She states her pain never really went away but increased over the last 24 hours and is in the right lower abdomen and radiates to the right lower back. She denies vaginal discharge or bleeding. No vomit, no fevers, no chest pain or dyspnea. She is tender in the right lower abdomen and right upper abdomen. No midline spine pain, no saddle anesthesia. She denies IVDU. Given her recurrent worsening pain and location of her pain discussed with her concern for appendicitis vs abscess, and after discussing with her will obtain labs and CT to further evaluate Pt will be signed out to oncoming provider to follow up on labs, imaging and reassessment. Differential Diagnosis Differential Diagnosis: appendicitis, abscess Medical Records Medical records reviewed: Yes I reviewed the patient's medical records. <Nito Cantu MD - Last Filed: 01/03/21 08:22> Received signout from Dr. Loja. Please see his note regarding details of initial presentation, exam and plan of care. Patient's laboratories are quite reassuring with unremarkable CBC, chemistries that show improving mild elevation of transaminases, normal bilirubin. CT scan unremarkable with unchanged previously known findings. No acute findings. On my exam patient with bilateral lower lumbar pain and spasm, may be from her time under anesthetic on the operating table. No sciatic symptoms and normal motor function of the lower extremity. Patient given parenteral anxiolytic for muscle relaxation as well as analgesic. I will place her on a small amount of muscle relaxant for home. She understands not to mix medications. She is stable and improving. Lab Data Lab results reviewed: Yes I reviewed the patient's lab results. Labs: Laboratory Results - last 24 hr 01/03/21 01/03/21 07:07 07:07 WBC 6.95 RBC 4.70 Hgb 14.1 Hct 42.9 MCV 91.3 MCH 30.0 MCHC 32.9 RDW 13.0 Plt Count 361 MPV 9.2 Immature Gran % 0.4 Neutrophils % 51.7 Lymphocytes % 34.4 Monocytes % 10.6 Eosinophils % 2.0 Basophils % 0.9 Nucleated RBC % 0 Absolute Neutrophils 3.59 Absolute Lymphocytes 2.39 Absolute Monocytes 0.74 Absolute Eosinophils 0.14 Absolute Basophils 0.06 Sodium 139 Potassium 3.9 Chloride 105 Carbon Dioxide 22.6 Anion Gap 11.4 H BUN 23 H Creatinine 1.1 H Estimated GFR/1.73 m2 55.01 Glucose 97 Calcium 9.0 Magnesium 2.2 Total Bilirubin 0.4 Conjugated Bilirubin 0.1 AST 47 H ALT 98 H Alkaline Phosphatase 124 H Total Protein 7.9 Albumin 4.0 Lipase 137 HPI <Dipak Loja MD - Last Filed: 01/03/21 07:08> General Mode of arrival: ambulatory . Date/Time Provider Initiated Documentation: 01/03/21 06:48 . Limitations to Documentation: no limitations . Information obtained by: patient . History of Present Illness 40 year old F presents to the emergency department with the chief complaint of abdomen pain, described as moderate, Quality is described as sharp, and is localized to the abdomen. Patient reports radiation to back. Patient started experiencing this day(s) (1) and it has been intermittent. No relieving factors improve symptom(s), No exacerbating factors reported . Patient notes denies chest pain. Patient did receive the following treatments prior to arrival, none Related Data Home Medications Medication Instructions Recorded Confirmed acetaminophen [Mapap Extra 2 tab PO TID PRN 09/13/14 01/03/21 Strength] ibuprofen 200 mg PO PRN PRN 11/07/14 01/03/21 levothyroxine 150 mcg PO DAILY 03/03/20 01/03/21 doxycycline hyclate 100 mg PO BID #28 cap 12/24/20 diazepam [Valium] 5 mg PO BID PRN #7 tab 01/03/21 Previous Rx's Medication Instructions Recorded doxycycline hyclate 100 mg PO BID #28 cap 12/24/20 diazepam [Valium] 5 mg PO BID PRN #7 tab 01/03/21 Allergies Allergy/AdvReac Type Severity Reaction Status Date / Time morphine AdvReac Intermediate Nausea Unverified 01/03/21 06:52 General Stated Complaint: Abd Prob MANSOOR: 3 Review of Systems <Dipak Loja MD - Last Filed: 01/03/21 07:08> All systems reviewed & are unremarkable except as noted in HPI and below Constitutional Constitutional: Denies chills, Denies fever(s) and Denies weakness Cardiovascular Cardiovascular: Denies chest pain and Denies dyspnea Respiratory Respiratory: Denies cough and Denies dyspnea Gastrointestinal Gastrointestinal: Denies vomiting Genitourinary Genitourinary: Denies dysuria Neurologic Neurologic: Denies weakness [facility] <Dipak Loja MD - Last Filed: 01/03/21 07:08> Surgical History Arthroplasty of knee 2004 back surgery 2014 [facility]. Spondylothesis. section x2. Diagnostic Laproscopy (11/26/16) At time of D+C for incomplete SAB to r/o ectopic . Dilation and curettage x3 for missed SAB x2 and incomplete SAB x1. Social History (Reviewed 03/03/20 @ 14:41 by Bryanna Nielson Smoking/Tobacco Use Status: Former Tobacco Use Smoking risk assessment performed?: Yes Alcohol Intake: current Alcohol Intake frequency: a few times a month Drug use: Daily Substance use type: marijuana Do you feel safe at home: Yes Do you feel safe in your relationship?: Yes Exam <Dipak Loja MD - Last Filed: 01/03/21 07:08> Const General: no acute distress Orientation: alert HENMT Head: normal to inspection Ears: external ears normal General nose exam: external nose normal Mouth: moist mucous membranes Eyes General: appearance normal, both eyes and all related structures Neck Neck: normal visual inspection Resp Effort & Inspection: normal respiratory effort and able to speak in complete sentences Cardio Rate: regular rate GI Palpation: soft, not rigid and tender Skin General skin exam: no rashes or lesions noted Neuro General: patient alert and patient oriented x3 Extrem General: normal to inspection Psych Mental Status: mental status grossly normal Course <Dipak Loja MD - Last Filed: 01/03/21 07:08> Vital Signs Vital signs: Vital Signs Temperature 36.2 C L 01/03/21 06:47 Pulse 98 H 01/03/21 06:47 Respiratory Rate 18 01/03/21 06:47 Blood Pressure 141/109 H 01/03/21 06:47 Pulse Oximetry 99 01/03/21 06:47 Temperature 36.2 C L 01/03/21 06:47 Temperature Source Oral 01/03/21 06:47 Pulse 98 H 01/03/21 06:47 Respiratory Rate 18 01/03/21 06:47 Respiratory Effort Non-Labored 01/03/21 06:51 Blood Pressure 141/109 H 01/03/21 06:47 Blood Pressure Position Sitting 01/03/21 06:47 Pulse Oximetry 99 01/03/21 06:47 Oxygen Delivery Method Room Air 01/03/21 06:47 Oxygen Flow Rate 0 01/03/21 06:47 Pain Level 8 01/03/21 06:47 Sign Out <Dipak Loja MD - Last Filed: 01/03/21 07:08> Sign Out Data: Sign Out Comment: recent cholecystectomy in [place] [facility], now having right lower abdomen pain radiating to the back. Follow up labs, imaging and reasse ssment. Last updated by Dipak Loja MD at 01/03/21 07:09
[2021-01-03 07:15] LABS: Abs Immature Grans 0.03 10^3/uL (0.0-0.06); Absolute Basophil Count 0.06 10^3/uL (0.0-0.2); Absolute Eosinophil Count 0.14 10^3/uL (0.0-0.7); Absolute Lymphocyte Count 2.39 10^3/uL (1.2-3.4); Absolute Monocyte Count 0.74 10^3/uL (0.1-0.8); Absolute Neutrophil Count 3.59 10^3/uL (1.2-6.7); Basophils % 0.9; HCT 42.9 % (36.0-46.0); HGB 14.1 g/dL (11.2-15.7); Immature Grans % 0.4; Lymphocytes % 34.4; MCHC 32.9 % (32.0-36.0); MCV 91.3 fL (80-95); MPV 9.2 fL (8.0-11.0); Monocytes % 10.6; Neutrophils % 51.7; Nucleated RBC 0 %; Platelet Count 361 10^3/uL (130-400); RDW-SD 43.8 fL; WBC 6.95 10^3/uL (4.4-10.8)
[2021-01-03] MEDS: Ketorolac 15 MG/ML VIAL IVP (07:17)
[2021-01-03] MEDS: Normal Saline 1,000 ML 1000 ML IV (07:17)
[2021-01-03] MEDS: Omnipaque 350 MG/ML 100 ML BTL IJ (07:29)
[2021-01-03 07:33] LABS: ALT 98 U/L (14-59); AST 47 U/L (15-37); Alkaline Phosphatase 124 U/L (46-116); Anion Gap 11.4 mmol/L (3-11); BUN 23 mg/dL (7-18); Bilirubin, Direct 0.1 mg/dL (0.0-0.2); Bilirubin, Total 0.4 mg/dL (0.2-1.0); CO2 22.6 mmol/L (21.0-32.0); CREATININE 1.1 mg/dL (0.55-1.02); Chloride 105 mmol/L (98-107); Estimated GFR 55.01 (mL/min/1.73m2); Glucose 97 mg/dL (74-106); Lipase 137 U/L (73-393); Magnesium 2.2 mg/dL (1.8-2.4); Potassium 3.9 mmol/L (3.5-5.1); Sodium 139 mmol/L (136-145); Total Protein 7.9 g/dL (6.4-8.2)
[2021-01-03] MEDS: Normal Saline - Diluent 50 ML VIAL IV (07:37)
[2021-01-03 07:58] LABS: Bilirubin Negative (Negative); Blood Negative (Negative); Clarity Clear (Clear); Glucose Negative (Negative); Ketones Negative (Negative); Leukocyte Esterase Negative (Negative); Nitrite Negative (Negative); Specific Gravity >= 1.030 (1.005-1.025); Urobilinogen 0.2 EU/dL (Up TO 0.2); pH 5.5 (5-8)
[2021-01-03 08:09] LABS: Bacteria Rare HPF (Negative); C & S Indicated? No; Casts Negative LPF (Negative); Crystals Negative HPF (Negative); Epithelial Cells Few HPF (Negative); Mucus Trace (Negative); RBC Negative HPF (0-2); WBC 0-2 HPF (0-5)
[2021-01-03] MEDS: LORazepam 2 MG/ML VIAL 0.5 MG IVP (08:22)
[2021-01-03] MEDS: HYDROmorphone 2 MG/ML VIAL 1 MG IVP (08:22)
[2021-01-03 08:40] VITALS: BP 125/84; PULSE 67; RESP 14; O2SAT 96
== END 2021-01-03 08:47 | disposition home or self-care (01) ==
PROVIDERS: Emergency Medicine; Emergency Provider Emergency Medicine; PCP Family Medicine
DX: R10.31 Right lower quadrant pain (principal); M54.5 Low back pain
CPT/HCPCS: 36415; 80053; 83690; 96361; 96374; 96375; 99285; 74177; 81003; 81015; 82248; 83735; 85025; 99284; J1885; J2060; J3490

== ENCOUNTER → 2021-09-08 11:10 | Outpatient (CLI) | payer MEDICAID, SELFPAY ==
--- NOTE | 2021-09-08 11:50 | DI.RAD_ITS ---
Exam(s) XR KNEE LT 3V AP,LAT,AN EXAM: XR KNEE LT 3V AP,LAT,AN CLINICAL HISTORY: knee pain left TECHNIQUE: COMPARISON: CR RIGHT KNEE COMPLETE from 03/06/2011 FINDINGS: Three views were obtained. There is mild narrowing of the cartilaginous joint space of the medial ti biofemoral joint, presumably on a degenerative basis. There are moderate marginal osteophytes of the medial tibiofemoral joint and patellofemoral joint. Probable small joint effusion. Possible small osteochondroma at distal femur anteriorly. There is no evidence of acute fracture or dislocation. IMPRESSION: RADIATION DOSE DELIVERED: Total DLP
--- NOTE | 2021-09-08 12:16 | DI.VRAD_ITS ---
PROCEDURE INFORMATION: Preliminary report Exam: XR Left Knee Exam date and time: 09/08/2021 11:55 AM Age: 41 years old Clinical indication: Left; Patient HX: Chronic knee pain TECHNIQUE: Imaging protocol: XR Left knee. Views: 3 views. COMPARISON: None FINDINGS: Bones/joints: Degenerative change, preferentially involving the medial tibiofemoral joint. Additional small joint effusion. 7 mm exostosis arising from the anterior cortex of the distal femur. Soft tissues: Calcification at the femoral attachment site of the medial collateral ligament. IMPRESSION: Degenerative change, preferentially involving the medial tibiofemoral joint. Additional findings as described above. Dictated and Authenticated by: Yonis Cisneros MD. Ordering:STANISLAV Hunter MD
== END ==
PROVIDERS: PCP Family Medicine; Visit Provider Nurse Practitioner Family
DX: M25.562 Pain in left knee (principal); M25.462 Effusion, left knee; M17.12 Unilateral primary osteoarthritis, left knee
CPT/HCPCS: 73562

== ENCOUNTER → 2021-12-18 01:01 | Outpatient (CLI) | payer MEDICAID, SELFPAY ==
--- NOTE | 2021-12-18 10:00 | DI.MRI_ITS ---
Exam(s) MR LOWER JOINT LT WO EXAM: MR LOWER JOINT LT WO CLINICAL HISTORY: pain, primary oa lt knee, M17.12 TECHNIQUE: Multiplanar multisequence MRI of the knee was performed. COMPARISON: CR,XR XR KNEE LT 3V AP,LAT,AN from 09/08/2021 FINDINGS: EFFUSION: There is a moderate-sized joint effusion. MARROW:There is no evidence of fracture, bone contusion, nor osteochondral defects.. There are no si gnificant osseous lesions. PATELLOFEMORAL COMPARTMENT: The quadriceps tendon is intact. The patellar ligament is intact. There is moderate thickening of the retropatellar cartilage above the level of the equator and more s o laterally than medially.There are no degenerative subarticular cysts in the patella. No intraosseo us signal to suggest recent patellar dislocation. There are no patellar retinacular tears. CRUCIATE LIGAMENTS: A signal abnormality in the anterior cruciate ligament consistent mostly with deg enerative change and partial tearing.Posterior cruciate ligament also exhibits signal of partial tear ing. MEDIAL COMPARTMENT/MEDIAL MENISCUS: There is tearing of the medial 3rd of the posterior horn near the root. Anterior horn appears intact. No prominent extrusion.. There are severe car of full-thickness cartilage thinning over the medial condyle. Also marginal ost eophytes. No prominent subarticular edema. Intra-articular osteophytes. MEDIAL COLLATERAL LIGAMENT: Intact LATERAL COMPARTMENT/LATERAL MENISCUS: There is a tear of the posterior horn of the lateral meniscus n ear the root. Anterior horn exhibits myxoid degeneration signal. Moderate osteoarthritic cartilage changes, osteophytes. No osteochondral defect. ILIOTIBIAL BAND: Intact LATERAL COLLATERAL LIGAMENT COMPLEX: The fibular collateral ligament is intact. The biceps femoris t endon is intact.Popliteus muscle and tendon are intact. IMPRESSION: 1. There is severe tricompartmental osteoarthritic degenerative changes. 2. There tears of the posterior horns of both menisci, as described above. 3. Some degenerative signal noted in the ACL the some partial thickness tearing but no full-thickness ACL tear. Also mild increased intrasubstance signal in the PCL. 4. No collateral ligament tears. Moderate size joint effusion DATA REPOSITORY:
== END ==
PROVIDERS: PCP Family Medicine; Visit Provider Student in an Organized Health Care Education/Training Program
DX: M17.12 Unilateral primary osteoarthritis, left knee (principal); S83.282A Other tear of lateral meniscus, current injury, left knee, initial encounter; S83.242A Other tear of medial meniscus, current injury, left knee, initial encounter; S83.512A Sprain of anterior cruciate ligament of left knee, initial encounter; X58.XXXA Exposure to other specified factors, initial encounter
CPT/HCPCS: 73721

== ENCOUNTER 2021-12-31 02:30 | Outpatient (CLI) | payer MEDICAID, SELFPAY ==
[2021-12-31 14:32] LABS: Source Nasal/Nares
[2021-12-31 16:43] LABS: COVID-19 PCR Negative (Negative)
== END 2021-12-31 02:31 | disposition home or self-care (01) ==
PROVIDERS: PCP Family Medicine; Visit Provider Student in an Organized Health Care Education/Training Program
DX: Z20.822 Contact with and (suspected) exposure to COVID-19 (principal); Z01.818 Encounter for other preprocedural examination; Z01.812 Encounter for preprocedural laboratory examination
CPT/HCPCS: 87635

== ENCOUNTER 2022-01-01 10:18 | Day surgery (SDC) | payer MEDICAID, SELFPAY ==
[2022-01-01] VITALS (12 sets, daily range): BP systolic 128–176; BP diastolic 81–119; PULSE 62–86; RESP 11–21; TEMP 36.4–36.7; O2SAT 95–100; BMI 32.5
--- NOTE | 2022-01-01 09:44 | W.PM.DSUDISC ---
Discharge Plan Disposition Patient Disposition: HOME Condition: Good Discharge Details Reason For Visit: Left knee medial and lateral meniscus tears Attending Provider: Ramu Grissom Primary Care Provider: Milena Taylor V Home Meds and New Rx's Prescriptions: New acetaminophen 500 mg tablet 500 mg PO Q6H PRN (Reason: pain) Qty: 60 2RF ibuprofen 600 mg tablet 600 mg PO TID PRN (Reason: pain) Qty: 60 0RF oxycodone 5 mg tablet 5 mg PO Q6H Qty: 12 0RF Continued levothyroxine 150 mcg tablet 150 mcg PO DAILY Label Comments: TK 1 T PO D Discontinued naproxen 500 mg tablet 500 mg PO DAILY acetaminophen [Mapap Extra Strength] 500 MG tablet 2 tab PO TID PRN Discharge Instructions Stand Alone Forms: [facility] Knee Arthroscopy Referrals: Ramu Grissom MD [ [facility] STAFF PHYSICIAN] - Equipment/Supplies: Partial Weight Bearing Crutches Activity:: Elevate Remove Dressings/Wound Care:: 72 hours Shower/Bathe:: 72 hours Diet:: As Tolerated Discharge Orders Discharge Orders: Discharge Order (Routine); Ordered 01/01/22 Ordered By: Bonita Gomez
--- NOTE | 2022-01-01 10:31 | ANES.PREOP_ITS ---
General Info Date of Service Date Performed: 01/01/22 Height: 5 ft 2 in Weight: 80.739 kg Body Mass Index (BMI): 32.5 Surgical Procedure: Operation Date: 01/01/22 12:10 Proposed Procedure Side Surgeon p Knee Arthroscopy, Partial Lateral/Medial Menisectomy Left Ramu Grissom MD Meds Allergies and Home Medications Allergies Allergy/AdvReac Type Severity Reaction Status Date / Time morphine AdvReac Intermediate Nausea Unverified 01/01/22 10:53 Home Medication Medication Instructions Recorded levothyroxine 150 mcg tablet 150 mcg PO DAILY 03/03/20 acetaminophen 500 mg tablet 500 mg PO Q6H PRN pain #60 tabs 01/01/22 hydrocodone 5 mg-acetaminophen 325 1 tab PO Q6H PRN severe pain #4 01/01/22 mg tablet tabs ibuprofen 600 mg tablet 600 mg PO TID PRN pain #60 tabs 01/01/22 Current Visit Medications: Current Medications Generic Name Dose Route Start Last Admin Trade Name Freq PRN Reason Stop Dose Admin Acetaminophen 650 mg 01/01/22 09:43 Acetaminophen 325 Mg Tab PO Q4H PRN PRN Hydrocodone Bitart/Acetaminophen 0 tab 01/01/22 09:43 Hydrocodone 5/Acetaminophen 325 Tab PO Q3H PRN PRN Pain Ringer's Solution 1,000 mls @ 80 mls/hr 01/01/22 06:00 IV 01/30/22 23:59 INFUSION CHILO Cefazolin Sodium/Dextrose 2 gm in 50 mls @ 100 mls/hr 01/01/22 06:00 Ancef Duplex IVPB 01/01/22 16:00 PREOP CHILO IV Miscellaneous Supplies 1 each 01/01/22 06:00 Iv Access IV 01/30/22 23:59 DIRECTED CHILO Sodium Chloride 0 ml 01/01/22 06:00 Normal Saline Flush 10 Ml Syr IV 01/30/22 23:59 PRN PRN Sodium Chloride 0 ml 01/01/22 06:00 Normal Saline 10 Ml Vial IJ 01/30/22 23:59 DIRECTED PRN Sterile Water 0 ml 01/01/22 06:00 Water,Injection,Sterile 10 Ml Vial IJ 01/30/22 23:59 DIRECTED PRN PFSH Active Problems Active Problems: Problem Status Onset Code Tear of medial meniscus of left knee S83.242A Tear of lateral meniscus of left knee S83.282A Internal derangement of left knee M23.92 Primary osteoarthritis of left knee M17.12 Dysfunctional uterine bleeding N93.8 Uterine fibroid D25.9 Pelvic pain R10.2 Lumbago M54.5 Shortness of breath R06.02 Cholecystitis K81.9 Abdominal pain R10.9 Surgical History Surgical History (Updated 01/01/22 @ 10:53 by Vee Taylor) back surgery 2014 [facility]. Spondylothesis. section x2. Diagnostic Laproscopy (11/26/16) At time of D+C for incomplete SAB to r/o ectopic . Dilation and curettage x3 for missed SAB x2 and incomplete SAB x1. Hx laparoscopic cholecystectomy [facility] 12/2020 Hx of arthroscopy of right knee 2004 Tobacco Smoking/Tobacco Use Status: Former Tobacco Use Alcohol Alcohol Intake: current Alcohol intake frequency: a few times a month Substance Use Substance use: Daily Substance use type: marijuana Vital Signs and Lab Results Lab Results Blood Type / Crossmatch: No Data to Display Complete Blood Count: No Data to Display Complete Metabolic Panel: No Data to Display Liver Function Panel: No Data to Display Coagulation Panel: No Data to Display Cardiac Panel: No Data to Display Arterial Blood Gas: No Data to Display Venous Blood Gas: No Data to Display Pancreas Panel: No Data to Display Thyroid Panel: No Data to Display Infectious Disease: Coronavirus (COVID-19)(PCR) Negative (Negative) 12/31/21 10:13 Coronavirus 2019 Source Nasal/Nares 12/31/21 10:13 Blood Cultures: No Data to Display Toxicology Panel: No Data to Display Panel: No Data to Display Imaging and Studies Imaging and Studies Study information below may be from another EMR and interpreted by another provider. Please see original notes in EMR for more complete details. EKG Summary: DATE/TIME OF SERVICE: 11/26/20 0456 : 1980PERFORMING LOCATION: ER APPROVED REPORT Exam: Resting ECG Reason for Exam: SOB Patient Location: E HR:61 bpm ECG Measurements Heart Rate 61 AXIS UT 142 P 70 QRSd 90 QRS 59 QT 428 T76 QTc 432 Conclusion Sinus rhythm...normal P axis, V-rate 60- 99 Abnrm T, consider ischemia, anterolateral lds...T <-0.20mV, I aVL V2-V6 Echocardiogram Summary: 07/16/12: EF 70%, normal valves. Anesthesia Assessment and Plan Anesthesia History Personal History: No History of Anesthesia Complications Family History: No Family History of Anesthesia Complications Exercise Tolerance Exercise Tolerance: Metabolic Equivalents>4 Pertinent Negatives Pertinent Negatives: No Symptoms of GERD, No Major Cardiovascular Symptoms or Complaints and No Major Pulmonary Symptoms or Complaints Cardiac & Pulmonary Exam Cardiac Exam: Normal S1/S2 Heart Sounds Pulmonary Exam: Clear Bilateral Breath Sounds Implantable Cardiac Device Does patient have a Pacemaker or an ICD?: No ASA Classification ASA Score: ASA 2 Emergency Case?: No NPO Status NPO Status: NPO Clears >2 hours, Solids >8 hours Anesthesia Plan Resuscitation Status: Full Code Anesthesia Technique: General Anesthesia Airway Planned: LMA Monitors Used: Standard Monitors
[2022-01-01] MEDS: Lactated Ringers 1,000 ML 80 ML IV (10:45)
--- NOTE | 2022-01-01 11:14 | W.ANESPRE ---
General Info Date of Service Date Performed: 01/01/22 Height: 5 ft 2 in Weight: 80.6 kg Body Mass Index (BMI): 32.5 Surgical Procedure: Operation Date: 01/01/22 12:10 Proposed Procedure Side Surgeon p Knee Arthroscopy, Partial Lateral/Medial Menisectomy Left Ramu Grissom MD Meds Allergies and Home Medications Allergies Allergy/AdvReac Type Severity Reaction Status Date / Time morphine AdvReac Intermediate Nausea Unverified 01/01/22 10:53 Home Medication Medication Instructions Recorded levothyroxine 150 mcg tablet 150 mcg PO DAILY 03/03/20 acetaminophen 500 mg tablet 500 mg PO Q6H PRN pain #60 tabs 01/01/22 hydrocodone 5 mg-acetaminophen 325 1 tab PO Q6H PRN severe pain #4 01/01/22 mg tablet tabs ibuprofen 600 mg tablet 600 mg PO TID PRN pain #60 tabs 01/01/22 Current Visit Medications: Current Medications Generic Name Dose Route Start Last Admin Trade Name Freq PRN Reason Stop Dose Admin Acetaminophen 650 mg 01/01/22 09:43 Acetaminophen 325 Mg Tab PO Q4H PRN PRN Hydrocodone Bitart/Acetaminophen 0 tab 01/01/22 09:43 Hydrocodone 5/Acetaminophen 325 Tab PO Q3H PRN PRN Pain Ringer's Solution 1,000 mls @ 80 mls/hr 01/01/22 06:00 01/01/22 10:45 IV 01/30/22 23:59 80 mls/hr INFUSION CHILO Administration Cefazolin Sodium/Dextrose 2 gm in 50 mls @ 100 mls/hr 01/01/22 06:00 Ancef Duplex IVPB 01/01/22 16:00 PREOP CHILO IV Miscellaneous Supplies 1 each 01/01/22 06:00 Iv Access IV 01/30/22 23:59 DIRECTED CHILO Sodium Chloride 0 ml 01/01/22 06:00 Normal Saline Flush 10 Ml Syr IV 01/30/22 23:59 PRN PRN Sodium Chloride 0 ml 01/01/22 06:00 Normal Saline 10 Ml Vial IJ 01/30/22 23:59 DIRECTED PRN Sterile Water 0 ml 01/01/22 06:00 Water,Injection,Sterile 10 Ml Vial IJ 01/30/22 23:59 DIRECTED PRN PFSH Active Problems Active Problems: Problem Status Onset Code Shortness of breath R06.02 Cholecystitis K81.9 Abdominal pain R10.9 Lumbago M54.5 Pelvic pain R10.2 Uterine fibroid D25.9 Dysfunctional uterine bleeding N93.8 Primary osteoarthritis of left knee M17.12 Internal derangement of left knee M23.92 Tear of lateral meniscus of left knee S83.282A Tear of medial meniscus of left knee S83.242A Medical History Medical History Comments:: Pt reports swallowing her synthroid at 0950 today without water; current marijauna use daily;yesterday last use; smoker 1-2 cigarettes/day Surgical History Surgical History (Updated 01/01/22 @ 10:53 by Vee Taylor) back surgery 2014 [facility]. Spondylothesis. section x2. Diagnostic Laproscopy (11/26/16) At time of D+C for incomplete SAB to r/o ectopic . Dilation and curettage x3 for missed SAB x2 and incomplete SAB x1. Hx laparoscopic cholecystectomy [facility] 12/2020 Hx of arthroscopy of right knee 2004 Tobacco Smoking/Tobacco Use Status: Current every day Tobacco Type: e-cigarettes Alcohol Alcohol Intake: current Alcohol intake frequency: a few times a month Substance Use Substance use: Daily Substance use type: marijuana Vital Signs and Lab Results Vital Signs Most Recent Vital Signs in EMR: Most Recent Vital Signs Temp Pulse Resp BP Pulse Ox 36.7 C 66 14 128/81 95 01/01/22 10:40 01/01/22 10:40 01/01/22 10:40 01/01/22 10:40 01/01/22 10:40 Point of Care Results Point of Care Results: POC- Test(urine) Negative 01/01/22 10:51 Lab Results Blood Type / Crossmatch: No Data to Display Complete Blood Count: No Data to Display Complete Metabolic Panel: No Data to Display Liver Function Panel: No Data to Display Coagulation Panel: No Data to Display Cardiac Panel: No Data to Display Arterial Blood Gas: No Data to Display Venous Blood Gas: No Data to Display Pancreas Panel: No Data to Display Thyroid Panel: No Data to Display Infectious Disease: Coronavirus (COVID-19)(PCR) Negative (Negative) 12/31/21 10:13 Coronavirus 2019 Source Nasal/Nares 12/31/21 10:13 Blood Cultures: No Data to Display Toxicology Panel: No Data to Display Panel: No Data to Display Anesthesia Assessment and Plan Anesthesia History Personal History: No History of Anesthesia Complications Family History: No Family History of Anesthesia Complications Exercise Tolerance Exercise Tolerance: Metabolic Equivalents>4 Pertinent Negatives Pertinent Negatives: No Symptoms of GERD Cardiac & Pulmonary Exam Cardiac Exam: Normal S1/S2 Heart Sounds Pulmonary Exam: Clear Bilateral Breath Sounds Implantable Cardiac Device Does patient have a Pacemaker or an ICD?: No Airway Exam Known Difficult Airway: No Mallampati Class: 1 Mouth Opening: Normal (> 3cm) Thyromental Distance: Greater than 3 cm Neck Range of Motion: Full ROM Neck Circumference: Normal Teeth Condition: Generalized Poor Dentition ASA Classification ASA Score: ASA 2 Emergency Case?: No NPO Status NPO Status: NPO Clears >2 hours, Solids >8 hours Status Status: Negative HCG Anesthesia Plan Resuscitation Status: Full Code Anesthesia Technique: General Anesthesia Airway Planned: LMA Monitors Used: Standard Monitors
[2022-01-01] MEDS: ceFAZolin 2 GM/50 ML BAG IVPB (11:39)
[2022-01-01] MEDS: Bupivacaine 0.5% Pres-Free 30 ML VIAL (12:52)
[2022-01-01] MEDS: fentaNYL 100 MCG/2 ML VIAL IVP ×2 (13:08→13:17)
[2022-01-01] MEDS: Normal Saline Flush 10 ML SYR IV (13:11)
[2022-01-01] MEDS: HYDROmorphone 2 MG/ML VIAL IVP ×2 (13:11→13:49)
--- NOTE | 2022-01-01 14:13 | ROE_ITS ---
Date of service: 01/01/22 Time of Service: 13:00 Operative Note Operative Note DATE OF PROCEDURE: 01/01/22 PRE-OP DIAGNOSIS: Left Knee Medial and Lateral Meniscus Tear POST-OP DIAGNOSIS: same (And partial PCL tear) PROCEDURE: Left Knee Arthroscopic Debridement with Partial Medial and Lateral Menisectomies SURGEON: Ramu Grissom INSTRUCTOR EXTENSION WORK: Bonita Gomez Refer to Anesthesia Record ESTIMATED BLOOD LOSS: 0 PATHOLOGY: none sent COMPLICATIONS: None Patient was transported to: PACU Patient's condition: stable Indications: I have seen Roxy in clinic for symptoms of a meniscus tear. This was confirmed based on MRI and exam findings. Nonoperative measures were exhausted but disability and pain persisted. I discussed knee arthroscopy with meniscal intervention with the patient. I reviewed the risks of the procedure to include, but not limited to, bleeding, infection, pain, stiffness, damage to nerves or vessels, recurrence, blood clot. Despite these risks, the patient elected to proceed. 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 The consent was reviewed with the patient and signed. The history and physical was updated. All questions were answered. She was taken back to the operating room. The patient was placed into the supine position on the operating room table. All bony prominences were well padded. Prophylactic antibiotics in the form of cefazolin were administered. The left leg was then prepped with Chloraprep and draped in a standard fashion with stockinette and extremity drape. A timeout to confirm correct identity, side and site, procedure, allergies, anesthesia, and medical concerns was performed. The leg was placed into a pneumatic leg kerr, [id number]. A standard lateral portal was made at the lateral border of the patella tendon in line with the inferior pole of the patella, soft spot. The skin and deep tissue was incised sharply and the blunt trochar was inserted atraumatically. A diagnostic arthroscopy was performed and the findings are listed above. The suprapatellar pouch had moderate inflammatory changes. The patellofemoral articulation showed grade II/III chondromalacia as well as good tracking. The lateral gutter had no loose bodies and the medial gutter had no loose bodies but there was notable osteophyte. The knee was brought into some valgus stress in extension to open the medial compartment. A medial portal was made, localized by a spinal needle. The portal was created with an #11 blade through skin and capsule under direct visualization avoiding any meniscal injury. A probe was then inserted into the medial compartment. The medial compartment was fully inspected. The chondral surface of the tibia showed grade II chondromalacia and the surface of the femur showed grade II chondromalacia. The medial meniscus had a complex tear at the level of the posterior horn. There also appear to be some inflammatory change and thinned tissue adjacent to the root which may have been indicative of previous radial type tear adjacent to the root. Additionally, a portion of the PCL was flipped and interposed over the lateral aspect of the medial compartment. After evaluation, the meniscus was debrided down to a stable base using a series of biters and arthroscopic joy. It was probed afterwards to confirm that the tear had been removed and the meniscus was stable. Cartilage surfaces were debrided of any flaps, leaving any intact fibers. I debrided back the PCL stump to a stable base. The notch was then inspected which showed an intact ACL and an partially intact PCL. The leg was then brought into a figure of 4 position. The lateral compartment was fully inspected with the arthroscope and a probe. The chondral surface of the lateral femur showed grade II chondromalacia. The chondral surface of the lateral tibia showed grade II chondromalacia. The lateral meniscus had a complex tear at the level of the root. Greater than half the root was avulsed off with fraying and complex tearing of the free edge. After evaluation, the meniscus was debrided down to a stable base using a series of biters and arthroscopic joy. It was probed afterwards to confirm that the tear had been removed and the meniscus was stable. The arthroscope was brought back into the suprapatellar pouch and the leg was in full extension. The knee was thoroughly irrigated with the arthroscopic fluid on high flow and pressure. Inflow was stopped and excess fluid was removed. The wounds were closed with 4-0 Nylon. The wounds and the knee were then injected with 0.5% bupivacaine. They were dressed with Xeroform, 4x4 gauze, ABD pad, Kerlix and an DAIN wrap. A cryo-cuff was applied. The patient tolerated the procedure well and was returned to the Same Day Surgery area in a stable condition suffering no known complication.
[2022-01-01] MEDS: diazePAM 5 MG TAB PO (14:17)
--- NOTE | 2022-01-01 15:12 | W.ANESPOSTOP ---
Postoperative Evaluation Date, Time and Location Date Performed: 01/01/22 Time Performed: 15:09 Patient Location: Day Surgery Unit Vital Signs Most Recent Imported Vital Signs: Most Recent Vital Signs Temp Pulse Resp BP Pulse Ox 36.5 C 67 18 143/119 H 96 01/01/22 14:51 01/01/22 14:51 01/01/22 14:51 01/01/22 14:51 01/01/22 14:51 Pain Score Most Recent Pain Score: Most Recent Pain Score Pain Level 7 01/01/22 14:51 Assessment Mental Status: Arousable with meaningful communication Airway and Respiratory Function: Patent airway with normal (patient baseline) respiratory exam Cardiovascular Function: Hemodynamically Stable Hydration Status: Adequately Hydrated Nausea & Vomiting: No Nausea or Vomiting Pain: Pain is Moderate or Severe Postoperative Pain Management: Pain being addressed with medication Peripheral Nerve Block: Patient did not receive a nerve block (Nerve block offered, patient refused) Teaching Patient Teaching: Other (Discussed current hypertension, patient aware, but not currently being treated for HTN.)
[2022-01-01] MEDS: Acetaminophen 325 MG TAB 650 MG PO (15:18)
== END 2022-01-01 16:08 | disposition home or self-care (01) ==
PROVIDERS: PCP Family Medicine; Visit Provider Student in an Organized Health Care Education/Training Program
PROC: (CPT 29870; principal; 2022-01-01 12:00)
DX: M23.262 Derangement of other lateral meniscus due to old tear or injury, left knee (principal); M23.222 Derangement of posterior horn of medial meniscus due to old tear or injury, left knee; M94.262 Chondromalacia, left knee
CPT/HCPCS: 29880; J0690; J1100; J1885; J2250; J2405; J2704; J3010

== ENCOUNTER 2024-11-17 21:40 | Outpatient (REF) | payer MEDICAID, SELFPAY ==
[2024-11-19 12:17] LABS: Chlamydia Result Positive (Negative); GC Result Negative (Negative)
== END 2024-11-17 21:41 | disposition home or self-care (01) ==
LOC: NCHCN 21:40
PROVIDERS: PCP Family Medicine; Visit Provider Physician Assistant
DX: Z11.3 Encounter for screening for infections with a predominantly sexual mode of transmission (principal); R30.0 Dysuria
CPT/HCPCS: 87491; 87591; 87480; 87510; 87660

== ENCOUNTER 2025-05-23 07:40 | Emergency (ER) | payer MEDICAID, SELFPAY ==
[2025-05-23 07:53] VITALS: BP 136/91; PULSE 88; RESP 16; O2SAT 98
[2025-05-23 08:11] LABS: Glucose Negative (Negative)
[2025-05-23 08:17] VITALS: BP 136/91; PULSE 88; RESP 16; O2SAT 98
[2025-05-23 08:25] LABS: RBC 0-2 HPF (0-2)
--- NOTE | 2025-05-23 08:59 | W.ED.GENAD ---
Discharge Plan Disposition Patient Disposition: Home Condition: Stable Discharge Details Clinical Impression: Acute pelvic inflammatory disease (PID), Bilateral chronic knee pain Primary Care Provider: Milena Taylor V ED Provider: Tomasz Kamara Home Meds and New Rx's Prescriptions: New doxycycline hyclate 100 mg tablet 100 mg PO BID Qty: 27 0RF metronidazole 500 mg tablet 500 mg PO BID Qty: 27 0RF Continued acetaminophen 500 mg tablet 500 mg PO Q6H PRN (Reason: pain) Qty: 60 2RF ibuprofen 600 mg tablet 600 mg PO TID PRN (Reason: pain) Qty: 60 0RF levothyroxine 150 mcg tablet 150 mcg PO DAILY Qty: 30 0RF Discharge Instructions Instructions: Chronic Knee Pain, Pelvic Inflammatory Disease ED Additional Instructions: Please follow-up with your primary care physician. [facility] Be sure discussed results of gonorrhea and Chlamydia testing which is pending at time of discharge. You are being treated with medications to treat both of these potential infections as well as trichomonas. An HIV test was performed today and pending at time of discharge. Please be sure to follow-up with your primary care physician or [facility] for the result. Should this test be positive, additional outpatient diagnostic testing and treatment will be necessary. Please follow-up with orthopedics regarding your chronic knee pain. Return to the emergency department immediately for any worsening or new concerning symptoms. Stand Alone Forms: Portal Information Referrals: [facility] [Provider Group] [facility] [place] Milena Taylor MD [Primary Care Provider, Medicine] [facility] General Mode of arrival: ambulatory. Date/Time Provider Initiated Documentation: 05/23/25 07:47. Limitations to Documentation: no limitations. Information obtained by: patient. HPI Narrative: 44-year-old female with history of pelvic inflammatory disease last summer when she tested positive for chlamydia and trichomonas that was treated with antibiotics and resolved, dysfunctional uterine bleeding, chronic bilateral knee pain, here with chief complaint of vaginal discharge. Patient notes abnormal foul-smelling vaginal discharge over the past few weeks. She has associated dysuria. She had some vaginal bleeding 2 days ago that is resolved. She notes symptoms feel similar to when she had PID last summer. Patient denies recent sexual activity and notes she has not had sex since prior to PID in the summer. 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 Related Data Home Medications ?Medication ?Instructions ?Recorded ?Confirmed acetaminophen 500 mg tablet 500 mg PO Q6H PRN pain #60 tabs 01/01/22 05/23/25 ibuprofen 600 mg tablet 600 mg PO TID PRN pain #60 tabs 01/01/22 05/23/25 doxycycline hyclate 100 mg tablet 100 mg PO BID #27 tabs 05/23/25 levothyroxine 150 mcg tablet 150 mcg PO DAILY #30 tabs 05/23/25 metronidazole 500 mg tablet 500 mg PO BID #27 tabs 05/23/25 Previous Rx's ?Medication ?Instructions ?Recorded acetaminophen 500 mg tablet 500 mg PO Q6H PRN pain #60 tabs 01/01/22 ibuprofen 600 mg tablet 600 mg PO TID PRN pain #60 tabs 01/01/22 doxycycline hyclate 100 mg tablet 100 mg PO BID #27 tabs 05/23/25 levothyroxine 150 mcg tablet 150 mcg PO DAILY #30 tabs 05/23/25 metronidazole 500 mg tablet 500 mg PO BID #27 tabs 05/23/25 Allergies Allergy/AdvReac Type Severity Reaction Status Date / Time morphine AdvReac Intermediate Nausea Unverified 11/17/24 18:45 General Stated Complaint: Urinary MANSOOR: 3 Review of Systems All systems reviewed & are unremarkable except as noted in HPI and below Constitutional Constitutional: Denies fever(s) Genitourinary Genitourinary: Reports as per HPI, Reports dysuria, Reports pelvic pain, Denies urinary hesitancy, Denies urinary urgency, Reports vaginal discharge and Reports vaginal odor Exam Const General: cooperative HENMT Mouth: moist mucous membranes Eyes Conjunctivae: normal conjunctivae Sclera: normal sclerae Neck Neck: trachea midline and supple Resp Auscultation: clear to auscultation bilaterally, no rales, no rhonchi and no wheezes Cardio Rate: regular rate and not tachycardic Rhythm: regular rhythm GI Palpation: soft, not firm, no guarding, no masses, not rigid and nontender Speculum Exam - Vagina: abnormal vaginal discharge, No vaginal bleeding, No tissue present in vagina and tenderness OB/External & Speculum: no tissue noted in vagina, No vaginal bleeding and vaginal discharge Other: Pelvic exam was performed with female nurse bark press operator Jasmin present for the entirety of the exam. Patient has no vaginal bleeding or cutaneous lesions. Patient does have yellowish-white discharge. Patient was uncomfortable during exam and cervix was not visualized. Vaginal discharge sent for trichomonas and GC chlamydia testing. Patient does have cervical motion tenderness on exam. Skin General skin exam: no rashes or lesions noted Neuro General: patient alert, patient awake and tone normal Extrem General: no edema Other: Bilateral knees with full range of motion, no effusion, no overlying inflammatory changes Psych Appearance: grossly normal Mental Status: mental status grossly normal Course Vital Signs Vital signs: Vital Signs Pulse 88 05/23/25 07:53 Respiratory Rate 16 05/23/25 07:53 Blood Pressure 136/91 H 05/23/25 07:53 Pulse Oximetry 98 05/23/25 07:53 Temperature Source Tympanic 05/23/25 08:17 Pulse 88 05/23/25 08:17 Respiratory Rate 16 05/23/25 08:17 Blood Pressure 136/91 H 05/23/25 08:17 Blood Pressure Position Sitting 05/23/25 08:17 Pulse Oximetry 98 05/23/25 08:17 Oxygen Delivery Method Room Air 05/23/25 08:17 Oxygen Flow Rate 0 05/23/25 08:17 Pain Level 7 05/23/25 08:17 Lab/Test Results Lab/Test Results: Laboratory Tests Range/Units 05/23/25 08:04 Urine Color (Yellow) Yellow Urine Clarity (Clear) Sl Cloudy Urine pH (5-8) 5.5 Ur Specific [place] (1.005-1.025) >= 1.030 H Urine Protein (Neg-Trace) mg/dL Trace Urine Ketones (Negative) mg/dL Negative Urine Blood (Negative) Negative Urine Nitrite (Negative) Negative Urine Bilirubin (Negative) Small H Urine Urobilinogen (Up to 0.2) mg/dL 0.2 Ur Leukocyte Esterase (Negative) Small H Urine RBC (0-2) HPF 0-2 Urine WBC (0-5) HPF 10-20 H Ur Epithelial Cells (Negative) HPF Moderate Urine Crystals (Negative) HPF Negative Urine Bacteria (Negative) HPF Few Urine Casts (Negative) LPF Negative Urine Mucus (Negative) Moderate Ur Culture Indicated? No/Sq. Contamination Urine Glucose (Negative) mg/dL Negative POC- Test(urine) Negative Medical Decision Making 44-year-old female here with abnormal vaginal discharge and pelvic pain over the past couple weeks. Patient also notes chronic bilateral knee pain. Patient had PID 6 months ago and was seen in [facility] care and treated for positive chlamydia and trichomonas. Plan to check [facility] path screening and GC chlamydia testing. Given prior positive chlamydia, consider HIV and will send screening testing as well. Plan to initiate treatment with ceftriaxone 500 mg IM, doxycycline 100 twice daily x 14 days, Flagyl 500 mg twice daily x 14 days. Regarding her chronic knee pain, there is no signs of acute inflammation. Patient has been seen by orthopedics and I will encourage her to follow-up for reevaluation. Patient requesting refill of her levothyroxine prescription. Usual and customary discharge instructions reviewed with patient. She was encouraged to follow-up with her primary care physician, [facility] and [facility]. Patient verbalized understanding of discharge instruction. PFSH All Active Problems Bilateral chronic knee pain (Acute) Acute pelvic inflammatory disease (PID) (Acute) Shortness of breath (Acute) Cholecystitis (Acute) Abdominal pain (Acute) Lumbago (Acute) Pelvic pain (Acute) Uterine fibroid (Acute) Dysfunctional uterine bleeding (Acute) Primary osteoarthritis of left knee (Acute) Depo Medrol Injection: 09/24/21 Internal derangement of left knee (Acute) Tear of lateral meniscus of left knee (Acute) Tear of medial meniscus of left knee (Acute) Surgical History Hx laparoscopic cholecystectomy [facility] 12/2020 Hx of arthroscopy of right knee 2004 back surgery 2014 [facility]. Spondylothesis. section x2. Diagnostic Laproscopy (11/26/16) At time of D+C for incomplete SAB to r/o ectopic . Dilation and curettage x3 for missed SAB x2 and incomplete SAB x1. Social History Smoking/Tobacco Use Status: Current every day Tobacco Type: e-cigarettes Tobacco: How many years used: 20 Smoking risk assessment performed?: Yes Alcohol Intake: current Alcohol Intake frequency: a few times a month Drug use: Daily Substance use type: marijuana Do you feel safe at home: Yes Do you feel safe in your relationship?: Yes PAWSS Have you Been Recently Intoxicated or Drunk Within the Last 30 days?: No Have you Ever Experienced Previous Episodes of Alcohol Withdrawal?: No Have you ever Experienced Withdrawal Seizures?: No Have you ever Experienced Delirium Tremens(DT)s?: No Have you ever undergone Alcohol Rehabilitation Treatment (i.e, inpt ot outpatient treatment programs)?: No Have you ever Experienced Blackouts?: No Have you ever Combined Alcohol with other Downers within the last 90 days?: No Have you ever Combined Alcohol with any other Substance of Abuse during the last 90 days?: No Positive Blood Alcohol level on Presentation? [PCS.BAL]: Unable to Obtain Evidence of Increased Autonomic Activity (i.e. HR>120, tremor, sweating, agitation, nausea)?: No Result: 0
[2025-05-23] MEDS: metroNIDAZOLE 500 MG TAB PO (09:26)
[2025-05-23] MEDS: Doxycycline Hyclate 100 MG CAP PO (09:26)
[2025-05-23] MEDS: cefTRIAXone 1 GM VIAL 0.5 GM IM (09:26)
[2025-05-23] MEDS: Water,Injection,Sterile 10 ML VIAL (09:26)
[2025-05-23 09:32] VITALS: TEMP 36.2
[2025-05-23 09:49] VITALS: BP 113/62; PULSE 71; RESP 16; TEMP 36.4; O2SAT 96
[2025-05-24 09:45] LABS: HIV-1/2 Ag & Ab Screen Negative (Negative)
[2025-05-25 11:09] LABS: GC Result Invalid (Negative)
--- NOTE | 2025-05-25 12:00 | W.ED.FU ---
Date of service: 05/25/25 Time of Service: 12:01 Follow Up Plan: Received call from the lab that [facility] was not able to run her GC chlamydia test, unclear why they were unable to run it. On review of her chart she is receiving treatment for both, I called to let her know of this issue with the lab test. I do not feel she requires a return to the ER to have the lab test done and she can have this done with her PCP or obgyn
[2025-05-25 14:51] LABS: Chlamydia Result Invalid (Negative)
== END 2025-05-23 10:14 | disposition home or self-care (01) ==
PROVIDERS: Emergency Provider Student in an Organized Health Care Education/Training Program; PCP Family Medicine
DX: N73.0 Acute parametritis and pelvic cellulitis (principal); M25.561 Pain in right knee; M25.562 Pain in left knee; G89.29 Other chronic pain
CPT/HCPCS: 36415; 81025; 87389; 87491; 87591; 96372; 99284; 81003; 81015; 87480; 87510; 87660; J0696